=== PATIENT | female | born 1965 | race Caucasian/White ===

== ENCOUNTER 2020-06-11 09:16 | Outpatient (REF) | payer OTHER, SELFPAY ==
--- NOTE | 2020-06-11 09:27 | XR_ITS ---
EXAMINATION: XR SHOULDER, LEFT CLINICAL INFORMATION: Pain left shoulder. COMPARISON: None TECHNIQUE: AP external rotation, Grashey, scapular Y, and axillary views of the left shoulder. FINDINGS: The bones and soft tissues are normal. No fracture. Glenohumeral and acromioclavicular alignment is anatomic with normal joint space. No abnormal soft tissue calcifications. XR/XR shoulder LT min 2V IMPRESSION: Unremarkable left shoulder.
[2020-06-11 11:41] LABS: Alanine Aminotransferase 14 U/L (0-31); Alkaline Phosphatase 72 U/L (39-117); Anion Gap 13 (12-20); Aspartate Amino Transferase 16 U/L (5-31); Bilirubin Total 0.3 mg/dL (0.0-1.0); Blood Urea Nitrogen 19 mg/dL (9-16); Carbon Dioxide 28 mmol/L (22-29); Chloride 104 mmol/L (96-108); Cholesterol 245 mg/dL; Estimated Glomerular Filt Rate > 60; Glucose Fasting 109 mg/dL (60-99); HDL Cholesterol 73 mg/dL; LDL Cholesterol Calculated 156 mg/dl; Potassium 4.7 mmol/l (3.3-5.1); Sodium 140 mmol/L (135-145); Total Protein 7.7 g/dL (6.5-8.0); Triglycerides 81 mg/dL
[2020-06-11 12:04] LABS: TSH reflex Free T4 11.43 mIU/mL (0.32-4.0)
[2020-06-11 12:38] LABS: Free T4 (Free Thyroxine) 0.84 ng/dL (0.71-1.85)
== END 2020-06-11 09:17 | disposition home or self-care (01) ==
LOC: HO.HMGCX 09:16
PROVIDERS: PCP Nurse Practitioner Family; Visit Provider Nurse Practitioner Family
DX: M25.512 Pain in left shoulder (principal)
CPT/HCPCS: 73030; 80053; 80061; 84439; 84443

== ENCOUNTER 2020-06-18 16:25 | Outpatient (REF) | payer OTHER, SELFPAY ==
--- NOTE | 2020-06-18 16:28 | MM_ITS ---
EXAMINATION: MM SCREENING DIGITAL BREAST TOMOSYNTHESIS, BILATERAL CLINICAL INFORMATION: Screening. Asymptomatic. Family history breast cancer aunt, grandmother. The lifetime risk of breast cancer based on the Tyrer-Cuzick Model is 17%. COMPARISON: Mammography: 08/25/2018 ([facility]). TECHNIQUE: Digital breast tomosynthesis is performed in both the craniocaudal and mediolateral oblique views along with computer-aided detection (CAD). Synthesized 2D images are generated from the tomosynthesis. Additional bilateral MLO views are provided. FINDINGS: The breasts are almost entirely fatty (ACR BI-RADS breast composition Category a). There are no significant masses, abnormal calcifications, or other abnormalities. The axilla and skin contours are unremarkable. No significant changes from prior outside exam. MM/MM tomosynthesis screening BI IMPRESSION: No mammographic evidence of malignancy. ASSESSMENT: BI-RADS 1: Negative RECOMMENDATION: Routine annual mammography screening. This patient's information was entered into a reminder system with a target due date for their next mammogram.
== END 2020-06-18 16:26 | disposition home or self-care (01) ==
LOC: HO.MAMMO 16:25
PROVIDERS: PCP Nurse Practitioner Family; Visit Provider Nurse Practitioner Family
DX: Z12.31 Encounter for screening mammogram for malignant neoplasm of breast (principal)
CPT/HCPCS: 77063; 77067

== ENCOUNTER 2020-06-26 15:32 | Outpatient (REF) | payer OTHER, SELFPAY ==
--- NOTE | 2020-06-26 15:34 | US_ITS ---
EXAMINATION: US THYROID CLINICAL INFORMATION: Enlarged thyroid. COMPARISON: None. TECHNIQUE: Linear transducer malik-scale and color Doppler examination with attention to the region of the thyroid. FINDINGS: SIZE: Measurements of the thyroid lobes and nodules are given in sagittal, anteroposterior and transverse dimensions respectively. Right Thyroid Lobe: 4.7 x 1.8 x 2.5 cm, volume 11.1 mL. Parenchyma: The gland echotexture is heterogeneous. Thyroid vascularity is normal. Left Thyroid Lobe: 5.0 x 2.0 x 2.0 cm, volume 10.4 mL. Parenchyma: The gland echotexture is heterogeneous. Thyroid vascularity is normal. Isthmus: 0.4 cm in maximum AP dimension. RIGHT THYROID LOBE: There is 1 nodule seen. 1. Location: Lower posterior. Size: 0.7 x 0.5 x 0.5 cm. Nodule characteristics: Hypoechoic, smoothly marginated with no intranodular flow, likely simple cysts. ISTHMUS: No nodules. LEFT THYROID LOBE: There is 1 nodule seen. 1. Location: Upper. Size: 1.4 x 0.8 x 1.2 cm. Nodule characteristics: Hypoechoic, macrocalcifications and no intranodular flow, complex cyst. NODES: No lymphadenopathy is seen in the tissue surrounding the thyroid gland. US/US thyroid IMPRESSION: Mild thyromegaly with complex cyst upper pole nodule left lobe, very low suspicion for malignancy. Recommend one-year follow-up
== END 2020-06-26 15:33 | disposition home or self-care (01) ==
LOC: HO.HMGCX 15:32
PROVIDERS: PCP Nurse Practitioner Family; Visit Provider Nurse Practitioner Family
DX: E04.1 Nontoxic single thyroid nodule (principal); E78.5 Hyperlipidemia, unspecified
CPT/HCPCS: 76536

== ENCOUNTER → 2020-06-27 14:50 | Outpatient (BNVA) | payer OTHER, SELFPAY | PROVIDERS: PCP Nurse Practitioner Family; Visit Provider Nurse Practitioner Family | DX: Z76.89 Persons encountering health services in other specified circumstances (principal) ==

== ENCOUNTER 2020-08-19 09:01 | Outpatient (REF) | payer OTHER, SELFPAY ==
[2020-08-22 11:42] LABS: HPV mRNA E6/E7 rflx Not Detected (Not Detected)
== END 2020-08-19 09:02 | disposition home or self-care (01) ==
LOC: HO.LAB 09:01
PROVIDERS: PCP Nurse Practitioner Family; Visit Provider Advanced Practice Midwife
DX: Z01.419 Encounter for gynecological examination (general) (routine) without abnormal findings (principal); E66.01 Morbid (severe) obesity due to excess calories; Z68.42 Body mass index [BMI] 45.0-49.9, adult; Z87.891 Personal history of nicotine dependence
CPT/HCPCS: 36415; 87624; 88141; 88142

== ENCOUNTER 2020-10-10 08:59 | Day surgery (SDC) | payer OTHER, SELFPAY ==
[2020-08-08 10:31] VITALS: BMI 48.6
[2020-10-10 09:13] VITALS: BP 144/59; PULSE 63; RESP 20; TEMP 36.3; O2SAT 99
--- NOTE | 2020-10-10 09:20 | HO.ANESPROP2 ---
[facility] Active Problems Active Problems: All Active Problems (Updated 08/08/20 @ 15:13 by Dom Pimentel, [facility]) Eczema (Acute) Screening for colon cancer (Acute) Screening for cervical cancer (Acute) Screening for breast cancer (Acute) Physical exam (Acute) Enlarged thyroid (Acute) Left shoulder pain (Acute) Dyslipidemia (Acute) Thyroid cyst (Acute) Dermatitis (Acute) Hypothyroid (Acute) Past Medical History Medical History COVID-19 vaccine administered Hypothyroid Family History Family History Father Lung cancer Diabetes CHF (congestive heart failure) Mother Lung cancer Hypertension Brother Hypertension Diabetes Paternal Grandmother Breast cancer Family/Other Breast cancer Family/Other Colon cancer Maternal Grandmother Colon cancer Surgical History Surgical History Hx of cholecystectomy Social History Social History Household Members: Spouse and Children Alcohol intake: current Alcohol intake frequency: holidays/special occasions only Smoking Status: Former smoker Use of substances other than those prescribed or required for medical reasons: No Advance Directives Information Provided: No 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 Allergy/AdvReac Type Severity Reaction Status Date / Time Penicillins Allergy Unknown HIVES Verified 07/16/20 08:23 sulfamethoxazole Allergy Unknown HIVES Verified 07/16/20 08:23 [From Bactrim] trimethoprim [From Bactrim] Allergy Unknown HIVES Verified 07/16/20 08:23 Active Medications: Current Medications Generic Name Dose Route Start Last Admin Trade Name Freq PRN Reason Stop Dose Admin Lactated Ringer's 1,000 mls @ 20 mls/hr 10/09/20 14:15 Lr IVCONT .Q24H SOURAV Home Medications Medication Instructions Recorded Confirmed Last Taken Type COVID-19 vacc,mRNA(Pfizer)(PF) 30 ml IM 07/16/20 07/16/20 Unknown History mcg/0.3 mL IM susp (EUA) hydroxyzine HCl 25 mg tablet [id number] mg PO 08/19/20 Unknown History triamcinolone acetonide 0.025 % appl TOPICAL 08/19/20 Unknown History topical cream Exam Exam Date and Time: October 10, 2020919 Height,Weight and Vital Signs: Height 5 ft 3 in Weight 124.7 kg Last Vital Signs Temp 97.3 F 10/10/20 09:13 Pulse 63 10/10/20 09:13 Resp 20 10/10/20 09:13 BP 144/59 H 10/10/20 09:13 Pulse Ox 99 10/10/20 09:13 Airway Mallampati Class: II TM Dist: >3cm Neck ROM: Full
[2020-10-10] MEDS: Lactated Ringers 1,000 ML 100 ML IVCONT (09:32)
--- NOTE | 2020-10-10 10:19 | P.HPSUR_ITS ---
Pre-Procedural Eval Section B Chief Complaint: screening Details of Present Illness: COLON CANCER SCREENING--+ HX POLYPS--BROTHER, AND COLON CANCER: MGM/MATERNAL AUNT Relevant Family History (Specify if Yes): Yes Relevant Social History: None Present Medications: see Short Stay Collaborative assessment Medical History: Significant History (Morbid obesity, Hypothyroid on replacement therapy) History of Previous Operations: Relevant previous surgery/procedure and date(s) (cholecystectomy 2 years ago.) Allergies: Allergies Allergy/AdvReac Type Severity Reaction Status Date / Time Penicillins Allergy Unknown HIVES Verified 07/16/20 08:23 sulfamethoxazole Allergy Unknown HIVES Verified 07/16/20 08:23 [From Bactrim] trimethoprim [From Bactrim] Allergy Unknown HIVES Verified 07/16/20 08:23 Review of Systems Sugical H&P ROS: Negative: Cardiovascular, Respiratory, Gastrointestinal and Musculoskeletal and Yes, Specify: Constitution (had lost 100 # but regained with Covid) and Endocrine (thyroid) Exam Surgical H&P Exam: Normal: HEENT, Normal: Heart, Normal: Lungs, Normal: Ex tremities and Normal: Skin and Significant Findings: Abdomen (central obesity) Plan Diagnosis/Plan: Unchanged I have reviewed the history and physical and performed a pertinent physical examination on my patient. No changes have occurred unless specified.yes
--- NOTE | 2020-10-10 10:50 | PM.OP ---
Brief Operative Note Date of Service: 10/10/20 Pre-op diagnosis: Colon cancer screening-+ Hx polyps in brother; hx colon cancer MGM,and M aunt. Post-op diagnosis: other (Negative exam) Procedure: COLONOSCOPY Implants: NONE Surgeon: Florinda Cyr MD Anesthesia: GLMA (AMISHA GALVAN CRNA) Estimated blood loss (mL): 0 Pathology: none sent Condition: stable Disposition: PACU
[2020-10-10 10:54] VITALS: BP 113/49; PULSE 54; RESP 16; TEMP 36.8; O2SAT 99
--- NOTE | 2020-10-10 11:05 | W.PM.OPN ---
Operative Note Operative Note Date of Service: 10/10/20 Narrative: Pre-op diagnosis: Colon cancer screening-+ Hx polyps in brother; hx colon cancer MGM,and M aunt. Post-op diagnosis: other (Negative exam) Procedure: COLONOSCOPY Implants: NONE Surgeon: Florinda Cyr MD Anesthesia: MAC: AMISHA GALVAN CRNA FINDINGS: JOSELIN-adequate sphincter tone. Adult slim colonoscope was introduced without difficulty advanced through sigmoid, descending, transverse colon, ascending colon into a deep cecal cap. Appendiceal orifice was wide open, ileacecal valve seen. PREP: Good to excellent. Slow withdrawal of scope, good rotational views no additional lesions were seen. ARV was clear. Estimated blood loss (mL): 0 Pathology: none sent Condition: stable Disposition: PACU PLAN: REPEAT SCREENING WITH HX POLYPS IN HER BROTHER IS 5 YEARS.
[2020-10-10 11:09] VITALS: BP 133/70; PULSE 50; RESP 16; O2SAT 99
[2020-10-10 11:26] VITALS: BP 135/52; PULSE 26; RESP 18; O2SAT 98
[2020-10-10] MEDS: ondansetron HCL 4 MG/2 ML VIAL IVPUSH (11:33)
[2020-10-10 11:41] VITALS: BP 127/49; PULSE 49; RESP 17; O2SAT 100
== END 2020-10-10 12:35 | disposition home or self-care (01) ==
PROVIDERS: PCP Nurse Practitioner Family; Visit Provider Internal Medicine Gastroenterology
PROC: 0DJD8ZZ Inspection of Lower Intestinal Tract, Via Natural or Artificial Opening Endoscopic (ICD-10-PCS; CPT 45378; principal; 2020-10-10 09:50)
DX: Z12.11 Encounter for screening for malignant neoplasm of colon (principal); Z83.71 Family history of colonic polyps; Z90.49 Acquired absence of other specified parts of digestive tract; Z88.0 Allergy status to penicillin; Z88.2 Allergy status to sulfonamides; Z87.891 Personal history of nicotine dependence
CPT/HCPCS: 45378; J2405

== ENCOUNTER 2021-02-11 09:11 | Outpatient (REF) | payer OTHER, SELFPAY ==
[2021-02-11 12:12] LABS: Cholesterol 211 mg/dL; HDL Cholesterol 58 mg/dL; LDL Cholesterol Calculated 136 mg/dl; Triglycerides 87 mg/dL
[2021-02-11 12:33] LABS: TSH reflex Free T4 9.82 uIU/mL (0.32-4.0)
== END 2021-02-11 09:12 | disposition home or self-care (01) ==
LOC: HO.HMGCLDS 09:11
PROVIDERS: PCP Nurse Practitioner Family; Visit Provider Nurse Practitioner Family
DX: E78.5 Hyperlipidemia, unspecified (principal); E03.9 Hypothyroidism, unspecified
CPT/HCPCS: 36415; 80061; 84439; 84443

== ENCOUNTER 2021-07-29 11:07 | Outpatient (REF) | payer OTHER, SELFPAY ==
--- NOTE | ~2021-07-29 | US_ITS ---
EXAMINATION: US THYROID CLINICAL INFORMATION: Nontoxic single thyroid nodule. COMPARISON: Thyroid ultrasound 06/26/2020. TECHNIQUE: Linear transducer grayscale and color Doppler examination with attention to the region of the thyroid. FINDINGS: SIZE: Measurements of the thyroid lobes and nodules are given in sagittal, anteroposterior and transverse dimensions respectively. Right Thyroid Lobe: 5.0 x 2.2 x 2.3 cm, volume 13.2 mL. Previously 4.7 x 1.8 x 2.5 cm, volume 11.1 mL. Parenchyma: The gland echotexture is heterogeneous. Thyroid vascularity is increased. Left Thyroid Lobe: 5.4 x 2.1 x 1.9 cm, volume 11.3 mL. Previously 5.0 x 2.0 x 2.0 cm, volume 10.4 mL. Parenchyma: The gland echotexture is heterogeneous. Thyroid vascularity is increased. Isthmus: 0.3 cm in maximum AP dimension. Previously 0.4 cm. Estimated total number of nodules greater than or equal to 1 cm: 1. 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 Location: Left mid/medial. Size: 1.4 x 0.7 x 1.1 cm, volume 0.56 mL. Previously: 1.4 x 0.8 x 1.2 cm, volume 0.70 mL. Nodule characteristics: Composition: Mixed cystic and solid (1). Echogenicity: Anechoic (0). Shape: Not taller than wide (0). Margins: Irregular (2). Echogenic Foci: None (0). ACR TI-RADS total points: 3 ACR TI-RADS category: 3 Significant change in size (>/= 20% in 2 dimensions and minimal increase of 2 mm or 50% or greater increase in volume): Change in features: Change in ACR TI-RADS risk category: 2. Location: Right upper/mid pole. Size: 0.6 x 0.3 x 0.6 cm, volume 0.07 mL. Previously: Not documented, new. Nodule characteristics: Composition: Mixed cystic and solid (1). Echogenicity: Anechoic (0). Shape: Not taller than wide (0). Margins: Irregular (2). Echogenic Foci: None (0). ACR TI-RADS total points: 3 ACR TI-RADS category: 3 NODES: No lymphadenopathy is seen in the tissue surrounding the thyroid gland. US/US thyroid IMPRESSION: 2 complex thyroid cysts with TI-RADS category 3 with neither nodule being 1.5 cm or larger in size ACR TI-RADS RECOMMENDATION REFERENCE: Ultrasound-guided fine-needle aspiration, followup ultrasound, no further follow up. * TR1 (0 point) and TR 2 (2 points): No FNA or follow up * TR3 (3 points): FNA if more than or equal to 2.5 cm in maximum dimension, followup ultrasound in 1, 3 and 5 years if 1.5 to 2.4 cm in maximum dimension. * TR4 (4-6 points): FNA if more than or equal to 1.5 cm in maximum dimension, followup ultrasound in 1, 2, 3 and 5 years if 1 to 1.4 cm in maximum dimension. * TR5 (more than or equal to 7 points): FNA if more than or equal to 1 cm in maximum dimension, followup ultrasound every year for 5 years if 0.5 to 0.9 cm in maximum dimension. * TR3, TR4 or TR5 nodules that are below the size threshold for follow up receive no follow up.
== END 2021-07-29 11:08 | disposition home or self-care (01) ==
LOC: HO.HMGCX 11:07
PROVIDERS: PCP Nurse Practitioner Family; Visit Provider Nurse Practitioner Family
DX: E04.1 Nontoxic single thyroid nodule (principal)
CPT/HCPCS: 76536

== ENCOUNTER → 2021-08-27 15:53 | Outpatient (BNVA) | payer OTHER, SELFPAY | PROVIDERS: PCP Nurse Practitioner Family; Visit Provider Internal Medicine Endocrinology, Diabetes & Metabolism ==

== ENCOUNTER 2021-09-03 10:55 | Outpatient (REF) | payer OTHER, SELFPAY ==
--- NOTE | ~2021-09-03 | US_ITS ---
EXAMINATION: US THYROID NODULE PRIOR TO FINE-NEEDLE ASPIRATION BIOPSY CLINICAL INFORMATION: Left thyroid nodule for fine-needle aspiration biopsy. COMPARISON: 06/26/2020 and 07/29/2021. TECHNIQUE: Linear transducer grayscale and color Doppler examination of the left thyroid lobe. FINDINGS: Scanning of the left thyroid nodule which measures approximately 1.4 x 0.8 x 1.2 cm in size demonstrates what appears to be a smooth-margined minimally complex colloid cyst without internal vascularity and which is wider than it is tall. A few echogenic foci are present which are likely due to colloid. After discussion with the patient with possible options, the patient decided to hold off on the fine-needle aspiration biopsy in favor of follow-up. US/US thyroid IMPRESSION: Fine-needle aspiration biopsy of left thyroid colloid cyst canceled at this time for a TI-RADS Category 3 nodule being less than 1.5 cm in largest dimension. Continued follow-up is recommended in one year unless clinical concern changes. ACR TI-RADS RECOMMENDATION REFERENCE: * TR1 (0 point) and TR 2 (2 points): No FNA or follow up * TR3 (3 points): FNA if more than or equal to 2.5 cm in maximum dimension, followup ultrasound in 1, 3 and 5 years if 1.5 to 2.4 cm in maximum dimension. * TR4 (4-6 points): FNA if more than or equal to 1.5 cm in maximum dimension, followup ultrasound in 1, 2, 3 and 5 years if 1 to 1.4 cm in maximum dimension. * TR5 (more than or equal to 7 points): FNA if more than or equal to 1 cm in maximum dimension, followup ultrasound every year for 5 years if 0.5 to 0.9 cm in maximum dimension. * TR3, TR4 or TR5 nodules that are below the size threshold for follow up receive no follow up.
== END 2021-09-03 10:56 | disposition home or self-care (01) ==
LOC: HO.US 10:55
PROVIDERS: PCP Nurse Practitioner Family; Visit Provider Internal Medicine Endocrinology, Diabetes & Metabolism
DX: E03.9 Hypothyroidism, unspecified (principal)
CPT/HCPCS: 76536

== ENCOUNTER 2021-09-30 09:35 | Outpatient (REF) | payer OTHER, SELFPAY ==
[2021-10-01 03:12] LABS: CT PCR NOT DETECTED (Not Detect.); NG PCR NOT DETECTED (Not Detect.)
[2021-10-01 12:07] LABS: BV Int Neg Control Negative (Negative); BV Int Pos Control Positive (Positive)
[2021-10-03 10:57] LABS: HPV mRNA E6/E7 rflx Not Detected (Not Detected)
== END 2021-09-30 09:36 | disposition home or self-care (01) ==
LOC: HO.LAB 09:35
PROVIDERS: PCP Nurse Practitioner Family; Visit Provider Advanced Practice Midwife
DX: R10.2 Pelvic and perineal pain (principal); N92.0 Excessive and frequent menstruation with regular cycle; N93.9 Abnormal uterine and vaginal bleeding, unspecified; N84.1 Polyp of cervix uteri; Z11.51 Encounter for screening for human papillomavirus (HPV); Z11.3 Encounter for screening for infections with a predominantly sexual mode of transmission; Z11.8 Encounter for screening for other infectious and parasitic diseases; E03.9 Hypothyroidism, unspecified; Z87.891 Personal history of nicotine dependence; Z68.43 Body mass index [BMI] 50.0-59.9, adult; Z90.49 Acquired absence of other specified parts of digestive tract; Z88.3 Allergy status to other anti-infective agents; Z88.0 Allergy status to penicillin; Z88.2 Allergy status to sulfonamides
CPT/HCPCS: 81025; 87480; 87491; 87510; 87591; 87624; 87660; 88142

== ENCOUNTER 2021-10-13 08:59 | Outpatient (REF) | payer OTHER, SELFPAY ==
--- NOTE | ~2021-10-13 | US_ITS ---
EXAMINATION: US PELVIS CLINICAL INFORMATION: Pelvic and perineal pain COMPARISON: None TECHNIQUE: Ultrasound of the pelvis is performed using both transabdominal and transvaginal transducers along with Doppler. Transvaginal imaging is performed due to inadequate visualization transabdominally. FINDINGS: The uterus is anteverted and measures 9.6 x 6 x 6.5 cm in dimension. Uterine echotexture is heterogeneous. There are 2 small cysts in the body of the uterus posterior to the endometrium measuring 4 x 6 mm and 6 x 7 mm. No other focal uterine lesion is seen. Endometrial thickness is normal measuring 0.7 cm. Ovaries are normal. The right ovary measures 1.8 x 1.8 x 1.9 cm. The left ovary measures 2.7 x 1.6 x 1.6 cm. There is no fluid in the pelvis. US/US pelvic and transvaginal IMPRESSION: Normal thickness endometrium. Heterogeneous uterus with 2 small cysts in the body of the uterus posterior to the endometrium. This can be seen with adenomyosis.
[2021-10-13 12:07] LABS: Hematocrit 44.5 % (37.0-47.0); Hemoglobin 14.6 g/dl (12.0-16.0); Mean Corpuscular HGB Conc 32.8 g/dl (31.0-35.0); Mean Corpuscular Hemoglobin 29.6 pg (27.0-33.0); Mean Corpuscular Volume 90.3 fL (80.0-98.0); Mean Platelet Volume 12.8 fL (9.4-12.3); Platelet Count 201 X10*3/uL (160-400); Red Blood Count 4.93 X10*6/uL (4.20-5.50); Red Cell Distribution Width 13.7 % (11.0-16.0); White Blood Count 6.9 X10*3/uL (4.8-10.8)
[2021-10-13 12:28] LABS: Free T4 (Free Thyroxine) 1.23 ng/dL (0.71-1.85); Thyroid Stimulating Hormone 2.85 uIU/mL (0.32-4.0)
[2021-10-15 05:57] LABS: Thyroid Peroxidase Antibodies 174 IU/mL (<9)
[2021-10-15 12:07] LABS: Follicle Stimulating Hormone 48.5 mIU/mL
== END 2021-10-13 09:00 | disposition home or self-care (01) ==
LOC: HO.HMGCX 08:59
PROVIDERS: Absent Provider Internal Medicine Endocrinology, Diabetes & Metabolism; PCP Nurse Practitioner Family; Visit Provider Advanced Practice Midwife
DX: N92.0 Excessive and frequent menstruation with regular cycle (principal); N84.1 Polyp of cervix uteri; R10.2 Pelvic and perineal pain; E03.9 Hypothyroidism, unspecified
CPT/HCPCS: 36415; 76830; 76856; 83001; 84439; 84443; 85027; 86376

== ENCOUNTER 2021-10-24 10:38 | Outpatient (REF) | payer OTHER, SELFPAY ==
[2021-10-30 18:56] LABS: HPV mRNA E6/E7 rflx Not Detected (Not Detected)
== END 2021-10-24 10:39 | disposition home or self-care (01) ==
LOC: HO.LAB 10:38
PROVIDERS: PCP Nurse Practitioner Family; Visit Provider Obstetrics & Gynecology
DX: Z12.4 Encounter for screening for malignant neoplasm of cervix (principal); Z11.51 Encounter for screening for human papillomavirus (HPV); N95.0 Postmenopausal bleeding; N84.1 Polyp of cervix uteri; R87.615 Unsatisfactory cytologic smear of cervix
CPT/HCPCS: 58100; 87624; 88142; 88305

== ENCOUNTER → 2021-11-18 12:33 | Outpatient (BNVA) | payer OTHER, SELFPAY | PROVIDERS: PCP Nurse Practitioner Family; Visit Provider Obstetrics & Gynecology | DX: N95.0 Postmenopausal bleeding (principal) ==

== ENCOUNTER 2021-12-24 14:02 | Outpatient (REF) | payer OTHER, SELFPAY | END 2021-12-24 14:03 | disposition home or self-care (01) | LOC: HO.LAB 14:02 | PROVIDERS: PCP Nurse Practitioner Family; Visit Provider Obstetrics & Gynecology | DX: R87.610 Atypical squamous cells of undetermined significance on cytologic smear of cervix (ASC-US) (principal); N93.9 Abnormal uterine and vaginal bleeding, unspecified | CPT/HCPCS: 57454; 88305 ==

== ENCOUNTER 2022-01-15 18:02 | Outpatient (REF) | payer OTHER, SELFPAY | END 2022-01-15 18:03 | disposition home or self-care (01) | LOC: HO.LNP 18:02 | DX: R30.0 Dysuria (principal) | CPT/HCPCS: 87086; 87088; 87186 ==

== ENCOUNTER 2022-01-21 16:43 | Outpatient (REF) | payer OTHER, SELFPAY ==
[2022-01-21 18:03] LABS: Alanine Aminotransferase 33 U/L (0-31); Albumin Level 4.2 g/dL (3.5-5.0); Alkaline Phosphatase 69 U/L (39-117); Anion Gap 16 (12-20); Aspartate Amino Transferase 31 U/L (5-31); Bilirubin Total 0.5 mg/dL (0.0-1.0); Blood Urea Nitrogen 16 mg/dL (9-16); Calcium 9.5 mg/dL (8.4-10.2); Carbon Dioxide 25 mmol/L (22-29); Chloride 103 mmol/L (96-108); Estimated Glomerular Filt Rate 52; Glucose Random 119 mg/dL (60-115); Potassium 4.7 mmol/L (3.3-5.1); Sodium 139 mmol/L (135-145); Total Protein 7.6 g/dL (6.5-8.0)
== END 2022-01-21 16:44 | disposition home or self-care (01) ==
LOC: HO.LAB 16:43
PROVIDERS: PCP Nurse Practitioner Family; Visit Provider Nurse Practitioner Family
DX: E03.9 Hypothyroidism, unspecified (principal); R31.9 Hematuria, unspecified
CPT/HCPCS: 36415; 80053; 84443

== ENCOUNTER 2022-01-22 07:59 | Outpatient (REF) | payer OTHER, SELFPAY ==
--- NOTE | ~2022-01-22 | CT_ITS ---
EXAMINATION: CT ABDOMEN AND PELVIS WITHOUT AND WITH CONTRAST CLINICAL INFORMATION: Right lower quadrant pain. COMPARISON: Pelvic ultrasound from 10/13/2021. TECHNIQUE: Multidetector volumetric imaging was performed of the abdomen and pelvis before and after the IV administration of 85 mL of Omnipaque 350 intravenous contrast. Sagittal and coronal reformatted images were obtained on the technologist's workstation. This CT examination was performed using dose optimization techniques as appropriate, variously including the following: *Automated exposure control *Adjustment of mA and/or kV according to patient size (this includes techniques or standardized protocols for targeted exams where dose is matched to indication/reason for exam; i.e. extremities or head) *Use of iterative reconstruction technique DLP: 1538 mGy-cm FINDINGS: LUNG BASES: Normal. No pulmonary consolidation or pleural effusion at either lung base. LIVER: Diffuse hepatic steatosis. Otherwise, liver is unremarkable. GALLBLADDER AND BILIARY TREE: Gallbladder is surgically absent. No dilated bile ducts. PANCREAS: Normal. No edema, pancreatic ductal dilatation or mass. SPLEEN: Normal. ADRENAL GLANDS: Normal. KIDNEYS AND URETERS: Kidneys are normal in size. Small, 0.4 cm calyceal stone in the lower pole of the left kidney. Otherwise, kidneys are unremarkable. No hydroureteronephrosis. BLADDER: Normal. No calculi or wall thickening. BOWEL AND PERITONEUM: Stomach is unremarkable. No dilated loops of bowel. The retrocecal appendix is normal. No overt bowel wall thickening or mesenteric fat stranding. No ascites or pneumoperitoneum. ABDOMINAL WALL: Obese body habitus, and mild protrusion of fat into the umbilicus. No significant findings in the abdominal wall. No abdominal mass. VASCULATURE: Unremarkable. LYMPH NODES: No pathologic sized lymph nodes in the abdomen or pelvis. No inguinal lymphadenopathy. PELVIC VISCERA: The anteflexed, anteverted uterus has normal contour. No masses are seen. The adnexa are unremarkable. No pelvic free fluid. SKELETAL: The facet arthropathy is severe at L4-5 and moderate at L5-S1. Mild and moderate degenerative arthropathy of the visualized lower thoracic spine. No suspicious bone lesions. CT/CT abdomen pelvis wo/w IV con IMPRESSION: * No acute imaging abnormalities in the abdomen or pelvis. * Obesity and diffuse hepatic steatosis. * 0.4 cm stone of the lower pole of the left kidney. No hydronephrosis.
[2022-01-22] MEDS: iohexoL 350 MG/ML 100 ML INFUS..BTL IV (09:19)
== END 2022-01-22 08:00 | disposition home or self-care (01) ==
LOC: HO.CT 07:59
PROVIDERS: PCP Nurse Practitioner Family; Visit Provider Nurse Practitioner Family
DX: R10.2 Pelvic and perineal pain (principal); R10.31 Right lower quadrant pain; R31.9 Hematuria, unspecified
CPT/HCPCS: 74178; Q9967

== ENCOUNTER 2022-05-09 10:35 | Outpatient (REF) | payer OTHER, SELFPAY ==
--- NOTE | ~2022-05-09 | MM_ITS ---
EXAMINATION: MM SCREENING DIGITAL BREAST TOMOSYNTHESIS, BILATERAL CLINICAL INFORMATION: Screening. Asymptomatic. The lifetime risk of breast cancer based on the Tyrer-Cuzick Model is 17%. COMPARISON: Mammography: 06/18/2020; outside mammography 08/25/2018 TECHNIQUE: Digital breast tomosynthesis is performed in both the craniocaudal and mediolateral oblique views along with computer-aided detection (CAD). Synthesized 2D images are generated from the tomosynthesis. Additional bilateral CC views are provided. FINDINGS: The breasts are almost entirely fatty (ACR BI-RADS breast composition Category a). There are no significant masses, abnormal calcifications, or other abnormalities. Background stromal and fibroglandular densities are unremarkable. No architectural abnormality or developing density. No significant changes. MM/MM tomosynthesis screening BI IMPRESSION: No mammographic evidence of malignancy. ASSESSMENT: BI-RADS 1: Negative RECOMMENDATION: Routine annual mammography screening. This patient's information was entered into a reminder system with a target due date for their next mammogram.
== END 2022-05-09 10:36 | disposition home or self-care (01) ==
LOC: HO.MAMMO 10:35
PROVIDERS: Visit Provider Nurse Practitioner Family
DX: Z12.31 Encounter for screening mammogram for malignant neoplasm of breast (principal)
CPT/HCPCS: 77063; 77067

== ENCOUNTER 2022-07-14 12:09 | Outpatient (REF) | payer OTHER, SELFPAY ==
[2022-07-14 12:52] LABS: Influenza A PCR NEGATIVE (Negative); Influenza B PCR NEGATIVE (Negative); Resp Syncy Virus RNA Qual PCR NEGATIVE (Negative); SARS COV2 PCR INHOUSE NEGATIVE (Negative)
== END 2022-07-14 12:10 | disposition home or self-care (01) ==
LOC: HO.LNP 12:09
PROVIDERS: Visit Provider Internal Medicine
DX: Z20.822 Contact with and (suspected) exposure to COVID-19 (principal); R43.9 Unspecified disturbances of smell and taste
CPT/HCPCS: 0241U

== ENCOUNTER 2022-08-12 12:16 | Outpatient (REF) | payer OTHER, SELFPAY ==
[2022-08-12 14:25] LABS: Appearance Urine Clear; Color Urine Yellow; Glucose Urine UA Negative (Negative); Leukocyte Esterase Urine Moderate (2+) (Negative); Nitrite Urine Negative (Negative); Specific Gravity - Urine 1.025 (1.005-1.025); UMIC TRIGGER UACC YES; Urine Blood Moderate (2+) (Negative); Urine Ketones Negative (Negative); Urine Protein Negative (Neg-Trace)
[2022-08-12 14:35] LABS: Bacteria Urine None Seen (None Seen); Squamous Epithelial Cell Urine 0-2 /HPF (0-2); UACC Culture Trigger YES; WBC Urine >50 /HPF (0-5)
[2022-08-12 14:38] LABS: MANUAL DIFF FLAG NO
[2022-08-12 14:49] LABS: Basophils Percent Auto 0.4 % (0-2); Eosinophils Absolute Auto 0.4 X10*3/uL (0.0-0.4); Eosinophils Percent Auto 4.6 % (0-4); Hematocrit 44.7 % (37.0-47.0); Hemoglobin 14.6 g/dl (12.0-16.0); Imm Gran Abs Auto 0.01 X10*3/uL (0.00-0.03); Imm Gran Pct Auto 0.1 % (0.0-0.4); Lymphocytes Absolute Auto 2.8 X10*3/uL (1.2-4.9); Lymphocytes Percent Auto 37.1 % (20-40); Mean Corpuscular HGB Conc 32.7 g/dl (31.0-35.0); Mean Corpuscular Hemoglobin 29.3 pg (27.0-33.0); Mean Corpuscular Volume 89.8 fL (80.0-98.0); Mean Platelet Volume 11.4 fL (9.4-12.3); Monocytes Absolute Auto 0.5 X10*3/uL (0.1-1.2); Monocytes Percent Auto 6.1 % (2-11); Neutrophils Absolute Auto 3.9 x10*3/uL (2.0-8.3); Neutrophils Percent Auto 51.7 % (45-73); Platelet Count 262 X10*3/uL (160-400); Red Blood Count 4.98 X10*6/uL (4.20-5.50); Red Cell Distribution Width 13.5 % (11.0-16.0); White Blood Count 7.5 X10*3/uL (4.8-10.8)
[2022-08-12 15:10] LABS: Alanine Aminotransferase 19 U/L (0-31); Alkaline Phosphatase 83 U/L (39-117); Anion Gap 12 (12-20); Aspartate Amino Transferase 16 U/L (5-31); Bilirubin Total 0.6 mg/dL (0.0-1.0); Blood Urea Nitrogen 22 mg/dL (9-16); Calcium 9.2 mg/dL (8.4-10.2); Carbon Dioxide 29 mmol/L (22-29); Chloride 106 mmol/L (96-108); Cholesterol 232 mg/dL; Estimated Glomerular Filt Rate > 60; Glucose Fasting 106 mg/dL (60-99); HDL Cholesterol 55 mg/dL; LDL Cholesterol Calculated 161 mg/dl; Potassium 4.9 mmol/L (3.3-5.1); Sodium 142 mmol/L (135-145); Total Protein 7.5 g/dL (6.5-8.0); Triglycerides 82 mg/dL
[2022-08-12 15:24] LABS: TSH reflex Free T4 4.43 uIU/mL (0.32-4.0)
[2022-08-12 17:23] LABS: Free T4 (Free Thyroxine) 1.07 ng/dL (0.71-1.85)
== END 2022-08-12 12:17 | disposition home or self-care (01) ==
LOC: HO.HMGCLDS 12:16
PROVIDERS: PCP Nurse Practitioner Family; Visit Provider Nurse Practitioner Family
DX: Z00.00 Encounter for general adult medical examination without abnormal findings (principal); R82.90 Unspecified abnormal findings in urine
CPT/HCPCS: 36415; 80053; 80061; 81001; 84439; 84443; 85025; 87086; 87088; 87186

== ENCOUNTER 2023-04-13 16:31 | Outpatient (AMB) | payer OTHER, SELFPAY ==
--- NOTE | 2023-04-13 16:34 | MHC.PC.OV ---
Vital Signs 04/13/23 16:36 Height 5 ft 3 in Weight 305 lb BMI 54.0 BP 126/82 Blood Pressure Location Rt brachial Position Sitting Pulse 73 Pulse Source Pulse Oximeter Pulse Oximetry (%) 97 Oxygen Delivery Method Room Air Intake Visit Reasons: PE Allergies Penicillins Allergy (Unknown, Verified 04/13/23 16:36) HIVES sulfamethoxazole [From Bactrim] Allergy (Unknown, Verified 04/13/23 16:36) HIVES trimethoprim [From Bactrim] Allergy (Unknown, Verified 04/13/23 16:36) HIVES Medication List - Last Reconciled 04/13/23 by DELORES Burr albuterol sulfate 90 mcg/actuation (ProAir HFA) 2 puffs inhalation Q6H PRN 30 days levothyroxine 137 mcg PO DAILY 30 days Tobacco use date assessed: 10/06/22 Dental Screening Dental Screen Date: 04/13/23 Did you have a dental visit in the last 12 months?: Yes Did you have a dental problem in the last 6 months where you did not have access to dental care?: No Was dental information given to patient?: Patient has dentist HPI PE HPI Details Pt is here for a PE. Will order labs. Colon screen is up to date. 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 Mammo is due next month. Pt has been off of her thyroid medication for approximately 1 month because she ran out, will refill medication, encouraged to have labs drawn in 2 months min [facility] Medical History COVID-19 vaccine administered Hypothyroid Surgical History Hx of cholecystectomy Family History Father Lung cancer Diabetes CHF (congestive heart failure) Mother Lung cancer Hypertension Brother Hypertension Diabetes Paternal Grandmother Breast cancer Family/Other Breast cancer Family/Other Colon cancer Maternal Grandmother Colon cancer Social History Household Members: Spouse and Children Housing: House Alcohol intake: current Alcohol intake frequency: holidays/special occasions only Patient Tobacco Use Status: Former Tobacco user Quit Date: 2007 e-Cigarette/Vaping Use: Never Used 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 How often do you have a drink containing alcohol?: Never 3. How often do you have six or more drinks on one occasion?: Never Total Score: 0 Score Reviewed/Action Taken: No TOMMY-7 AMB Questionnaire TOMMY-7 Date TOMMY - 7 assessed: 10/06/22 Source: Developed by Drs. Balwinder Simeon, Taina Duarte, Rod Tucker and colleagues, with an educational clinton from [employer]. Review of Systems Const Denies chills and Denies fever(s) Eyes Denies blurry vision ENT Denies vertigo, Denies dizziness and Denies sore throat Card Denies chest pain at rest, Denies chest pain with activity, Denies diaphoresis, Denies dyspnea and Denies dyspnea on exertion Resp Denies cough, Denies dyspnea, Denies dyspnea on exertion and Denies wheezing GI Denies abdominal pain, Denies melena, Denies hematochezia, Denies constipation, Denies diarrhea and Denies loose stools Denies hematuria Musc Denies numbness and Denies tingling Skin/Breast Denies lesions Neuro Denies vertigo, Denies dizziness, Denies numbness and Denies tingling Psych Denies anxiety, Denies depression, Denies homicidal ideation, Denies suicidal ideation and Denies other (substance abuse) Aller/Immun Denies wheezing Physical exam (Primary Care) Vital Signs: Last Vital Signs Pulse 73 04/13/23 16:36 BP 126/82 04/13/23 16:36 Pulse Ox 97 04/13/23 16:36 Oxygen Delivery Method Room Air 04/13/23 16:36 BMI result Body Mass Index 54.0 Tobacco/Smoking Status: Tobacco use Status Tobacco use date assessed 10/06/22 04/13/23 16:39 Patient Tobacco Use Status Former Tobacco user 04/13/23 16:39 e-Cigarette/Vaping Use Never Used 04/13/23 16:39 Thrive Assessment: Date of Thrive Assessment Date Thrive assessed 10/06/22 04/13/23 16:39 Const General: cooperative Nutritional Appearance: obese morbidly obese Orientation/consciousness: patient oriented x3 HENMT Head: Yes normal to inspection, Yes normocephalic and Yes atraumatic Ears: TM's normal bilaterally Eyes General: appearance normal, both eyes and all related structures Alignment and Position: alignment normal and position normal Neck Neck: Yes normal visual inspection and Yes no lymphadenopathy Thyroid: Thyroid normal Resp Effort & Inspection: normal respiratory effort Auscultation: clear to auscultation bilaterally Cardio Rate: regular rate Rhythm: regular rhythm Heart sounds: S1 normal heart sound present, S2 normal heart sound present and no murmurs GI Palpation (GI): Soft to palpation and nontender Auscultation: normal bowel sounds Skin Rashes: no rashes Neuro General: patient oriented x3, moves all extremities, no focal motor deficits and deep tendon reflexes 2+ bilaterally Romberg Test: Negative Psych Appearance: grossly normal Mental Status: mental status grossly normal Speech and movement: Normal speech and movement present Affect: normal affect Attitude: cooperative Thought process: Normal thought process present Thought content: Normal thought content present Insight: Good insight present (Psych) Judgement: Good judgement present (Psych) Assessment and Plan Assessment & Plan (1) Physical exam: Code(s): Z.00 - Encounter for general adult medical examination without abnormal findings Plan: Labs ordered Plan The patient agreed to the use of a front office medical assistant for this encounter. Scribed for DELORES Gomes by Zofia Zhang front office medical assistant, on 04/13/2023 at 16:40 EST Orders: Orders Comprehensive [place]. Panel Fast Today Z00.00 - Encounter for general adult medical examination without abnormal findings UA CC w/rflx Micro + Cult Today Z00.00 - Encounter for general adult medical examination without abnormal findings Complete Blood Count Auto Diff Today Z00.00 - Encounter for general adult medical examination without abnormal findings TSH reflex Free T4 Today Z00.00 - Encounter for general adult medical examination without abnormal findings Lipid Panel Today Z00.00 - Encounter for general adult medical examination without abnormal findings Medications: Refilled levothyroxine 137 mcg PO DAILY 30 days 30 tabs 3RF Coding Level of Care Code Est Pt Prev Care 40-64y(84959) Diagnoses Physical exam Z00.00
[2023-04-13 16:36] VITALS: BP 126/82; PULSE 73; O2SAT 97; BMI 54.0
== END 2023-04-13 17:11 | disposition home or self-care (01) ==
PROVIDERS: Visit Provider Nurse Practitioner Family
DX: Z00.00 Encounter for general adult medical examination without abnormal findings (principal)
CPT/HCPCS: 99396

== ENCOUNTER 2023-05-10 13:07 | Outpatient (AMB) | payer OTHER, SELFPAY ==
--- NOTE | 2023-05-10 13:14 | MHC.OFFVIS ---
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 No complaints. Last Pap/HPV was in 11/09 ascus/HPV negative, colpo biopsy ECC and EMB negative Last Mammogram was BI-RADS 1 in 05/12 Last Colonoscopy was done in 10/09 was negative the recommendation was to repeat in 5 years [facility] Medical History ASCUS of cervix with negative high risk HPV COVID-19 vaccine administered Hypothyroid Surgical History Hx of cholecystectomy Family History Father Lung cancer Diabetes CHF (congestive heart failure) Mother Lung cancer Hypertension Brother Hypertension Diabetes Paternal Grandmother Breast cancer Family/Other Breast cancer Family/Other Colon cancer Maternal Grandmother Colon cancer Social History Household Members: Spouse and Children Housing: House Alcohol intake: current Alcohol intake frequency: holidays/special occasions only Patient Tobacco Use Status: Former Tobacco user Quit Date: 2007 e-Cigarette/Vaping Use: Never Used 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 needs: No Hearing needs: No Vision needs: Yes Female Reproductive History Menstrual Age of Menarche: 13 Total pregnancies: 2 Full term: 2 Number of Living Children: 2 Date of last pap smear: 10/24/21 ([place] 01/09 colpo) History of abnormal pap smear: Yes ( ascus) Date of Mammogram: 05/09/22 Review of Systems Const All systems reviewed & are unremarkable except as noted in HPI and below Card Reports as per HPI Resp Reports as per HPI GI Reports as per HPI and Reports no additional complaints Reports as per HPI Physical Exam Vital Signs: Last Vital Signs BP 112/80 05/10/23 13:21 BMI result Body Mass Index 54.2 Const General: cooperative, healthy appearing and comfortable Chest Chest palpation & inspection: normal inspection of the chest and normal palpation of entire chest wall Breast/axilla inspection: normal inspection of the breasts and normal inspection of the axillae Breast/axilla palpation: normal palpation of the breasts, normal palpation of the axillae and no axillary lymphadenopathy Resp Effort & Inspection: normal respiratory effort Auscultation: clear to auscultation bilaterally Percussion: percussion normal Cardio Palpation: normal PMI Rate: regular rate Rhythm: regular rhythm Heart sounds: no murmurs and no rubs Peripheral pulses: Peripheral pulses 2+ throughout GI Inspection: Yes normal to inspection Palpation (GI): Soft to palpation, nontender, no guarding, not rigid and No hepatosplenomegaly present Percussion: Yes normal to percussion Auscultation: normal bowel sounds Rectal Exam - Female: deferred General: Yes bladder normal to palpation External Female Exam: No lesion Speculum Exam - Vagina: normal appearance of the vagina, normal palpation, normal vaginal discharge and not erythematous Speculum Exam - Cervix: normal appearance of the cervix and normal palpation Bimanual exam- vagina & uterus: normal bimanual exam, normal palpation, uterine size normal, bladder normal to palpation, consistency normal and normal palpation Bimanual Exam- Adnexa, other: normal adnexae, no masses and no tenderness Assessment & Plan Assessment & Plan (1) Well woman exam: Code(s): Z01.419 - Encounter for gynecological examination (general) (routine) without abnormal findings Plan: Co testing done. Counseled the patient about the recommended dietary allowance of 1200 mg of Calcium & 600 IU of vitamin D. Mammogram ordered. The patient was instructed to perform monthly self-breast exams and schedule annual exam in a year. All questions answered and the patient verbalized understanding. Orders: Orders MM screening mammo BI Today Z12.31 - Encounter for screening mammogram for malignant neoplasm of breast Coding Level of Care Code Est Pt Prev Care 40-64y(64435) Diagnoses Well woman exam Z01.419
[2023-05-10 13:21] VITALS: BP 112/80; BMI 54.2
== END 2023-05-10 13:37 | disposition home or self-care (01) ==
PROVIDERS: PCP Nurse Practitioner Family; Visit Provider Obstetrics & Gynecology
DX: Z01.419 Encounter for gynecological examination (general) (routine) without abnormal findings (principal)
CPT/HCPCS: 99396

== ENCOUNTER 2023-05-10 13:07 | Outpatient (REF) | payer OTHER, SELFPAY ==
[2023-05-14 08:53] LABS: HPV mRNA E6/E7 rflx Not Detected (Not Detected)
== END 2023-05-10 13:08 | disposition home or self-care (01) ==
LOC: HO.LNP 13:07
PROVIDERS: PCP Nurse Practitioner Family; Visit Provider Obstetrics & Gynecology
DX: Z01.419 Encounter for gynecological examination (general) (routine) without abnormal findings (principal); Z11.51 Encounter for screening for human papillomavirus (HPV)
CPT/HCPCS: 87624; 88142

== ENCOUNTER 2023-06-22 15:14 | Outpatient (REF) | payer OTHER, SELFPAY | END 2023-06-22 15:15 | disposition home or self-care (01) | LOC: HO.LNP 15:14 | PROVIDERS: PCP Nurse Practitioner Family; Visit Provider Obstetrics & Gynecology | DX: R87.610 Atypical squamous cells of undetermined significance on cytologic smear of cervix (ASC-US) (principal) | CPT/HCPCS: 57454; 88305 ==

== ENCOUNTER 2023-06-22 15:14 | Outpatient (AMB) | payer OTHER, SELFPAY ==
--- NOTE | 2023-06-22 15:18 | A.OFFVIS_ITS ---
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 Pap ascus/HPV negative PFSH Medical History ASCUS of cervix with negative high risk HPV COVID-19 vaccine administered Hypothyroid Surgical History Hx of cholecystectomy Family History Father Lung cancer Diabetes CHF (congestive heart failure) Mother Lung cancer Hypertension Brother Hypertension Diabetes Paternal Grandmother Breast cancer Family/Other Breast cancer Family/Other Colon cancer Maternal Grandmother Colon cancer Social History Household Members: Spouse and Children Housing: House Alcohol intake: current Alcohol intake frequency: holidays/special occasions only Patient Tobacco Use Status: Former Tobacco user Quit Date: 2007 e-Cigarette/Vaping Use: Never Used Patient : No 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 needs: No Hearing needs: No Vision needs: Yes Female Reproductive History Menstrual Age of Menarche: 13 control method: none Date of last pap smear: 05/11/23 (ASCUS) Physical Exam Vital Signs: Last Vital Signs BP 132/80 06/22/23 15:25 BMI result Body Mass Index 54.2 Office Procedures Colposcopy Before the procedure was started discussed with the patient the procedure, alternatives & all the risks associated with the procedure (bleeding, infection, injury to vagina, bladder, vessels, possible need for transfusion with all its risks) then patient signed the consent Pap smear = ascus/HPV negative Speculum inserted, acetic acid used Colposcopy done Transformation zone seen, acetowhite lesions identified at 4+6+7+9+12+1 o?clock, cervical biopsies taken from 4+6+7+9+12 o?clock, ECC done afterwards. Vaginoscopy of the upper vagina showed no evidence of any aceto-white lesions Monsel solution used for hemostasis. The patient tolerated well . At the end the patient was instructed to call if temp>100.4, abdominal pain, n/v, bleeding; The patient was given the following instructions: nothing per vagina, no intercourse or bath tub use. All questions answered the patient verbalized understanding. Instructed the patient to make an appointment in 2 weeks for follow-up This note was generated with a voice recognition program. Some errors may have been overlooked during the review of this note. Sometimes these errors may affect the content or meaning of a given sentence. [id number] of cervix including upper vagina with biopsy and ECC Procedure code (CPT) selection complete Assessment & Plan Assessment & Plan (1) ASCUS of cervix with negative high risk HPV: Code(s): R87.610 - Atypical squamous cells of undetermined significance on cytologic smear of cervix (ASC-US) Plan: Colposcopy done, see procedure note Orders: Orders AMB Colposcopy Today R87.610 - Atypical squamous cells of undetermined significance on cytologic smear of cervix (ASC-US) Coding Level of Care Code Procedure Only Diagnoses ASCUS of cervix with negative high risk HPV R87.610 CPT Codes Colposcopy - CPT: 51054-Dfsjpeoxr of cervix including upper vagina with biopsy and ECC ([id number])
[2023-06-22 15:25] VITALS: BP 132/80; BMI 54.2
== END 2023-06-22 15:47 | disposition home or self-care (01) ==
LOC: HO.HWS 15:14
PROVIDERS: PCP Nurse Practitioner Family; Visit Provider Obstetrics & Gynecology
DX: R87.610 Atypical squamous cells of undetermined significance on cytologic smear of cervix (ASC-US) (principal)
CPT/HCPCS: 57454

== ENCOUNTER 2023-07-12 15:13 | Outpatient (AMB) | payer OTHER, SELFPAY ==
[2023-07-12 15:32] VITALS: BP 124/80
--- NOTE | 2023-07-12 15:32 | MHC.OFFVIS ---
Intake Vital Signs 07/12/23 15:32 Height 5 ft 3 in BP 124/80 Intake Visit Reasons: COLPO follow up Allergies Penicillins Allergy (Unknown, Verified 07/12/23 15:32) HIVES sulfamethoxazole [From Bactrim] Allergy (Unknown, Verified 07/12/23 15:32) HIVES trimethoprim [From Bactrim] Allergy (Unknown, Verified 07/12/23 15:32) HIVES HPI HPI Comments History of Present Illness Details Presenting post colpo for follow-up. The patient is doing well with no complaints. The pathology showed the following: A. Cervix, 1:00, biopsy: Endocervical glandular mucosa; negative for dysplasia; no squamous component present. B. Cervix, 4:00, biopsy: Squamous mucosa; negative for dysplasia; no endocervical glandular component present. C. Cervix, 6:00, biopsy: Squamous mucosa; negative for dysplasia; no endocervical glandular component present. D. Cervix, 7:00, biopsy: Squamous mucosa; negative for dysplasia; no endocervical glandular component present. E. Cervix, 9:00, biopsy: Squamous and endocervical glandular mucosa; negative for dysplasia. F. Cervix, 12:00, biopsy: Low-grade squamous intraepithelial lesion (mild dysplasia, ORIN 1); detached endocervical glandular epithelium present. G. Endocervix, curettage: Low-grade squamous intraepithelial lesion (mild dysplasia, ORIN 1); endocervical glandular epithelium present. Comment: The atypical cells in the previous Pap test ([id number]) are similar to the dysplastic cells in the current biopsy [facility] Medical History (Updated 07/12/23 @ 15:36 by Jeff Mcnair MD) ASCUS of cervix with negative high risk HPV COVID-19 vaccine administered Hypothyroid Surgical History Hx of cholecystectomy Family History Father Lung cancer Diabetes CHF (congestive heart failure) Mother Lung cancer Hypertension Brother Hypertension Diabetes Paternal Grandmother Breast cancer Family/Other Breast cancer Family/Other Colon cancer Maternal Grandmother Colon cancer Social History Household Members: Spouse and Children Housing: House Alcohol intake: current Alcohol intake frequency: holidays/special occasions only Patient Tobacco Use Status: Former Tobacco user Quit Date: 2007 e-Cigarette/Vaping Use: Never Used 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 Discussed with the patient the sensitivity specificity, positive and negative predictive value in detecting cervical cancer in addition discussed the regression, persistence and progression rates. Recommended co-testing in 12 months, if cytology and or HPV are abnormal will proceed was colposcopy biopsy and endocervical curettage. Instructions given to the patient to schedule a co test appointment in 1 year. All questions answered the patient verbalized understanding. Coding Level of Care Code Tele Est Pt Level 3 (60306) Diagnoses Dysplasia of cervix, low grade (ORIN 1) N87.0
== END 2023-07-12 15:41 | disposition home or self-care (01) ==
LOC: HO.HWS 15:13
PROVIDERS: PCP Nurse Practitioner Family; Visit Provider Obstetrics & Gynecology
DX: N87.0 Mild cervical dysplasia (principal)
CPT/HCPCS: 99213

== ENCOUNTER → 2023-07-12 15:13 | Outpatient (BNVA) | payer OTHER, SELFPAY | PROVIDERS: PCP Nurse Practitioner Family; Visit Provider Obstetrics & Gynecology ==

== ENCOUNTER 2023-07-19 14:01 | Outpatient (REF) | payer OTHER, SELFPAY | END 2023-07-19 14:02 | disposition home or self-care (01) | LOC: HO.MAMMO 14:01 | PROVIDERS: PCP Nurse Practitioner Family; Visit Provider Obstetrics & Gynecology | DX: Z12.31 Encounter for screening mammogram for malignant neoplasm of breast (principal) | CPT/HCPCS: 77063; 77067 ==

== ENCOUNTER → 2023-07-19 14:15 | Outpatient (BNV) | payer OTHER, SELFPAY | PROVIDERS: PCP Nurse Practitioner Family; Visit Provider Radiology Diagnostic Radiology | DX: Z12.31 Encounter for screening mammogram for malignant neoplasm of breast (principal) | CPT/HCPCS: 77063; 77067 ==

== ENCOUNTER 2023-10-12 13:57 | Outpatient (REF) | payer OTHER, SELFPAY ==
[2023-10-12 16:12] LABS: MANUAL DIFF FLAG NO
[2023-10-12 16:17] LABS: Appearance Urine Turbid; Color Urine Yellow; Glucose Urine UA Negative (Negative); Leukocyte Esterase Urine Negative (Negative); Nitrite Urine Negative (Negative); PH 5.5 (5.0-9.0); Specific Gravity - Urine >= 1.030 (1.005-1.025); UMIC TRIGGER UACC YES; Urine Blood Small (1+) (Negative); Urine Ketones Negative (Negative); Urine Protein Negative (Neg-Trace)
[2023-10-12 16:26] LABS: Bacteria Urine 2+ (None Seen); Hyaline Casts Urine 0-2 /LPF (0-2); RBC Urine 0-2 /HPF (0-2); Squamous Epithelial Cell Urine 0-2 /HPF (0-2); WBC Urine 0-5 /HPF (0-5)
[2023-10-12 16:40] LABS: Basophils Absolute Auto 0.1 X10*3/uL (0.0-0.2); Basophils Percent Auto 0.6 % (0-2); Eosinophils Absolute Auto 0.4 X10*3/uL (0.0-0.4); Eosinophils Percent Auto 3.9 % (0-4); Hematocrit 46.1 % (37.0-47.0); Hemoglobin 15.3 g/dl (12.0-16.0); Imm Gran Abs Auto 0.02 X10*3/uL (0.00-0.03); Imm Gran Pct Auto 0.2 % (0.0-0.4); Lymphocytes Absolute Auto 2.4 X10*3/uL (1.2-4.9); Lymphocytes Percent Auto 26.8 % (20-40); Mean Corpuscular HGB Conc 33.2 g/dl (31.0-35.0); Mean Corpuscular Hemoglobin 29.3 pg (27.0-33.0); Mean Corpuscular Volume 88.1 fL (80.0-98.0); Mean Platelet Volume 12.6 fL (9.4-12.3); Monocytes Absolute Auto 0.5 X10*3/uL (0.1-1.2); Monocytes Percent Auto 5.9 % (2-11); Neutrophils Absolute Auto 5.6 x10*3/uL (2.0-8.3); Neutrophils Percent Auto 62.6 % (45-73); Platelet Count 200 X10*3/uL (160-400); Red Blood Count 5.23 X10*6/uL (4.20-5.50); Red Cell Distribution Width 13.7 % (11.0-16.0)
[2023-10-12 17:30] LABS: Alanine Aminotransferase 36 U/L (0-31); Albumin Level 3.9 g/dL (3.5-5.0); Alkaline Phosphatase 81 U/L (39-117); Anion Gap 13 (12-20); Aspartate Amino Transferase 24 U/L (5-31); Bilirubin Total 0.5 mg/dL (0.0-1.0); Blood Urea Nitrogen 18 mg/dL (9-16); Calcium 9.1 mg/dL (8.4-10.2); Carbon Dioxide 24 mmol/L (22-29); Chloride 108 mmol/L (96-108); Cholesterol 208 mg/dL (<200); Estimated Glomerular Filt Rate > 60; Glucose Fasting 128 mg/dL (60-99); HDL Cholesterol 55 mg/dL (>40); LDL Cholesterol Calculated 129 mg/dL (<100); Sodium 141 mmol/L (135-145); Total Protein 7.6 g/dL (6.5-8.0); Triglycerides 123 mg/dL (<150)
[2023-10-12 17:48] LABS: TSH reflex Free T4 3.36 uIU/mL (0.32-4.0)
== END 2023-10-12 13:58 | disposition home or self-care (01) ==
LOC: HO.HMGCLDS 13:57
PROVIDERS: PCP Nurse Practitioner Family; Visit Provider Nurse Practitioner Family
DX: Z00.00 Encounter for general adult medical examination without abnormal findings (principal); Z13.6 Encounter for screening for cardiovascular disorders
CPT/HCPCS: 36415; 80053; 80061; 81001; 84443; 85025

== ENCOUNTER 2023-10-13 10:01 | Outpatient (AMB) | payer OTHER, SELFPAY ==
--- NOTE | 2023-10-13 10:05 | A.OFFPC_ITS ---
Vital Signs 10/13/23 10:06 Weight 308 lb BP 126/80 Blood Pressure Location Lt brachial Position Sitting Pulse 77 Pulse Source Pulse Oximeter Pulse Oximetry (%) 98 Oxygen Delivery Method Room Air Intake Visit Reasons: 6 month follow up Intake Note: Patient here for lab f/u. Allergies Penicillins Allergy (Unknown, Verified 10/13/23 11:33) HIVES sulfamethoxazole [From Bactrim] Allergy (Unknown, Verified 10/13/23 11:33) HIVES trimethoprim [From Bactrim] Allergy (Unknown, Verified 10/13/23 11:33) HIVES Medication List - Last Reconciled 10/13/23 by MYKEL Burr-GREG albuterol sulfate 90 mcg/actuation (ProAir HFA) 2 puffs inhalation Q6H PRN 30 days atorvastatin 10 mg PO BEDTIME blood sugar diagnostic (FlockTAGTouch Verio test strips) Test blood sugar once a day lancets (FlockTAGTouch Delica Plus Lancet) Test blood sugar once a day levothyroxine 150 mcg PO DAILY 30 days lisinopril 2.5 mg PO DAILY metformin ER 500 mg PO DAILY OneTouch Verio Reflect Meter (blood-glucose meter) As directed to test blood sugar once a day NS Tobacco use date assessed: 10/06/22 Dental Screening Dental Screen Date: 04/13/23 HPI 6 month follow up HPI Details Pt's last fasting blood sugar was 128. Informed pt that she is now a diabetic. A1C in office today is 6.8. Will order microalbumin. Denies polyuria, polydipsia, and neuropathy. Pt denies any signs and symptoms of hypoglycemia and does know how to correct it. Will start metformin 500mg. Will also start low- dose AXEL and statin. 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 Micro hem noted. Pt has a hx of kidney stones. Will order urine culture, cytology, and CT urogram. Denies any flank pain. Pt's TSH was upper normal. Pt is reporting weight gain and fatigue. Will increase levothyroxine from 137mcg to 150mcg, will repeat TSH in 2 months [facility] Medical History (Updated 10/13/23 @ 10:24 by MYKEL Burr-GREG) ASCUS of cervix with negative high risk HPV COVID-19 vaccine administered Hypothyroid Surgical History Hx of cholecystectomy Family History Father Lung cancer Diabetes CHF (congestive heart failure) Mother Lung cancer Hypertension Brother Hypertension Diabetes Paternal Grandmother Breast cancer Family/Other Breast cancer Family/Other Colon cancer Maternal Grandmother Colon cancer Social History Household Members: Spouse and Children Housing: House Alcohol intake: current Alcohol intake frequency: holidays/special occasions only Patient Tobacco Use Status: Former Tobacco user Quit Date: 2007 e-Cigarette/Vaping Use: Never Used 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 1. Little interest or pleasure in doing things: not at all 2. Feeling down, depressed, or hopeless: several days 3. Trouble falling or staying asleep, or sleeping too much: not at all 4. Feeling tired or having little energy: more than half the days 5. Poor appetite or overeating: several days 6. Feeling bad about yourself - or that you are a failure or have let yourself or your family down: not at all 7. Trouble concentrating on things, such as reading the newspaper or watching television: several days 8. Moving or speaking so slowly that other people could have noticed. Or the opposite - being so fidgety or restless that you have been moving around a lot more than usual: not at all 9. Thoughts that you would be better off or of hurting yourself in some way: not at all Total score: 5 Depression Screening Interpretation: Negative Depression Screening Done: Yes 95158 - PHQ-9 Billing: Yes Source: Developed by Drs. Balwinder Simeon, Taina Duarte, Rod Tucker and colleagues, with an educational clinton from [employer]. Thrive Questionnaire Date Thrive assessed: 10/06/22 AUDIT C Alcohol Use Questionnaire (AUDIT-C) 1. How often do you have a drink containing alcohol?: Monthly or less 2. How many drinks containing alcohol do you have on a typical day when you are drinking?: 1 or 2 3. How often do you have six or more drinks on one occasion?: Never Total Score: 1 Score Reviewed/Action Taken: No TOMMY-7 AMB Questionnaire TOMMY-7 Date TOMMY - 7 assessed: 10/13/23 Feeling nervous, anxious, or on edge: 1 = Several days Not being able to stop or control worryin = Several days Worrying too much about different things: 1 = Several days Trouble relaxin = Several days Being so restless that it is hard to sit still: 0 = Not at all Becoming easily annoyed or irritable: 0 = Not at all Feeling afraid as if something awful might happen: 1 = Several days Total TOMMY-7 score (0-4 normal; 5-9 mild; 10-14 moderate; 15-21 severe): 5 Source: Developed by Drs. Balwinder Simeon, Taina Duarte, Rod Tucker and colleagues, with an educational clinton from [employer]. TOMMY-7 Assessment Billing TOMMY-7 Assessment Tool: TOMMY-7 Assessment 52362 Review of Systems Const Reports as per HPI Physical exam (Primary Care) Vital Signs: Last Vital Signs Pulse 77 10/13/23 10:06 BP 126/80 10/13/23 10:06 Pulse Ox 98 10/13/23 10:06 Oxygen Delivery Method Room Air 10/13/23 10:06 Tobacco/Smoking Status: Tobacco use Status Tobacco use date assessed 10/06/22 10/13/23 10:06 Patient Tobacco Use Status Former Tobacco user 10/13/23 10:06 e-Cigarette/Vaping Use Never Used 10/13/23 10:06 PHQ-9: PHQ-9 Score PHQ-9: Total score 5 10/13/23 11:34 Depression Screening Interpretation: Negative Thrive Assessment: Date of Thrive Assessment Date Thrive assessed 10/06/22 10/13/23 10:06 Const General: cooperative Nutritional Appearance: obese morbidly obese Orientation/consciousness: patient oriented x3 Resp Effort & Inspection: normal respiratory effort Auscultation: clear to auscultation bilaterally Cardio Rate: regular rate Rhythm: regular rhythm Heart sounds: S1 normal heart sound present and S2 normal heart sound present General: Yes no CVA tenderness Back/Spine/Pelvis Back: no CVA tenderness Neuro General: patient oriented x3 Extrem Other: bilat feet: + sensation with use of monofilament, feet intact Psych Appearance: grossly normal Mental Status: mental status grossly normal Speech and movement: Normal speech and movement present Affect: normal affect Attitude: cooperative Thought process: Normal thought process present Thought content: Normal thought content present Insight: Good insight present (Psych) Judgement: Good judgement present (Psych) Results AMB Hemoglobin A1c AMB Hemoglobin A1c 6.8 % Last Edit by CRISTOBAL Cordero on 10/13/23 10 :42 Results Reviewed Results Reviewed: Laboratory Last Values Hgb A1c (Clinic) 6.8 % (4.0-6.0) H 10/13/23 10:41 Assessment and Plan Assessment & Plan (1) Diabetes: Code(s): E11.9 - Type 2 diabetes mellitus without complications Plan: A1C done in office, microalbumin ordered (2) Microhematuria: Code(s): R31.29 - Other microscopic hematuria Plan: Urine culture, cytology, and CT urogram ordered (3) Hypothyroid: Code(s): E03.9 - Hypothyroidism, unspecified Plan: Increasing levothyroxine from 137mcg to 150mcg Plan The patient agreed to the use of a medical research tech for this encounter. Scribed for DELORES Gomes by Zofia Zhang medical research tech, on 10/13/2023 at 10:20 EST. Orders: Orders Microalbumin, Random (w Creat) Today E11.9 - Type 2 diabetes mellitus without complications Urine Culture Today R31.29 - Other microscopic hematuria AMB Hemoglobin A1c Today E11.9 - Type 2 diabetes mellitus without complications TSH reflex Free T4 Today E03.9 - Hypothyroidism, unspecified, E11.9 - Type 2 diabetes mellitus without complications Comprehensive Met. Panel Today E03.9 - Hypothyroidism, unspecified, E11.9 - Type 2 diabetes mellitus without complications Lipid Panel Today E03.9 - Hypothyroidism, unspecified, E11.9 - Type 2 diabetes mellitus without complications UA CC w/rflx Micro + Cult Today E03.9 - Hypothyroidism, unspecified, E11.9 - Type 2 [address] without complications [address] urogram Today R31.29 - Other microscopic hematuria Urine Cytology Today R31.29 - Other microscopic hematuria Complete Blood Count Auto Diff Today E03.9 - Hypothyroidism, unspecified, E11.9 - Type 2 diabetes mellitus without complications Comprehensive [place]. Panel Fast Today E03.9 - Hypothyroidism, unspecified, E11.9 - Type 2 diabetes mellitus without complications Medications: New atorvastatin 10 mg PO BEDTIME 90 tabs 0RF lisinopril 2.5 mg PO DAILY 90 tabs 0RF metformin ER 500 mg PO DAILY 90 tabs 0RF Changed From levothyroxine 137 mcg PO DAILY 30 days 30 tabs 3RF To levothyroxine 150 mcg PO DAILY 30 days 30 tabs 3RF Coding Level of Care Code Est Pt Level 3 (88493) Diagnoses Diabetes E11.9 Microhematuria R31.29 Hypothyroid E03.9 Additional Codes TOMMY-7 Assessment Billing - TOMMY-7 Assessment Tool: TOMMY-7 Assessment 38748 ([id number])
[2023-10-13 10:06] VITALS: BP 126/80; PULSE 77; O2SAT 98
== END 2023-10-13 13:29 | disposition home or self-care (01) ==
PROVIDERS: PCP Nurse Practitioner Family; Visit Provider Nurse Practitioner Family
DX: E11.9 Type 2 diabetes mellitus without complications (principal); R31.29 Other microscopic hematuria; E03.9 Hypothyroidism, unspecified
CPT/HCPCS: 83036; 99213

== ENCOUNTER 2023-11-16 10:36 | Outpatient (REF) | payer OTHER, SELFPAY ==
[2023-11-16 13:22] LABS: Urine Cytology See Pathology rpt
[2023-11-16 13:24] LABS: MANUAL DIFF FLAG NO
[2023-11-16 13:40] LABS: Appearance Urine Clear; Color Urine Yellow; Glucose Urine UA Negative (Negative); Leukocyte Esterase Urine Negative (Negative); Nitrite Urine Negative (Negative); PH 5.5 (5.0-9.0); Specific Gravity - Urine >= 1.030 (1.005-1.025); UMIC TRIGGER UACC YES; Urine Blood Trace (Negative); Urine Ketones Trace mg/dL (Negative); Urine Protein Negative (Neg-Trace)
[2023-11-16 13:43] LABS: Basophils Percent Auto 0.4 % (0-2); Eosinophils Absolute Auto 0.3 X10*3/uL (0.0-0.4); Hematocrit 45.7 % (37.0-47.0); Hemoglobin 15.2 g/dl (12.0-16.0); Imm Gran Abs Auto 0.02 X10*3/uL (0.00-0.03); Imm Gran Pct Auto 0.3 % (0.0-0.4); Lymphocytes Absolute Auto 2.2 X10*3/uL (1.2-4.9); Lymphocytes Percent Auto 31.4 % (20-40); Mean Corpuscular HGB Conc 33.3 g/dl (31.0-35.0); Mean Corpuscular Hemoglobin 29.6 pg (27.0-33.0); Mean Corpuscular Volume 89.1 fL (80.0-98.0); Mean Platelet Volume 12.3 fL (9.4-12.3); Monocytes Absolute Auto 0.5 X10*3/uL (0.1-1.2); Monocytes Percent Auto 6.7 % (2-11); Neutrophils Percent Auto 57.2 % (45-73); Platelet Count 260 X10*3/uL (160-400); Red Blood Count 5.13 X10*6/uL (4.20-5.50); Red Cell Distribution Width 13.8 % (11.0-16.0)
[2023-11-16 13:51] LABS: Monotest Negative (Negative)
[2023-11-16 14:04] LABS: Alanine Aminotransferase 26 U/L (0-31); Albumin Level 4.1 g/dL (3.5-5.0); Alkaline Phosphatase 72 U/L (39-117); Anion Gap 12 (12-20); Aspartate Amino Transferase 25 U/L (5-31); Bilirubin Total 0.3 mg/dL (0.0-1.0); Blood Urea Nitrogen 18 mg/dL (9-16); Calcium 9.6 mg/dL (8.4-10.2); Carbon Dioxide 25 mmol/L (22-29); Chloride 107 mmol/L (96-108); Cholesterol 124 mg/dL (<200); Estimated Glomerular Filt Rate > 60; Glucose Fasting 120 mg/dL (60-99); Glucose Random 119 mg/dL (60-115); HDL Cholesterol 42 mg/dL (>40); LDL Cholesterol Calculated 68 mg/dL (<100); Potassium 4.1 mmol/L (3.3-5.1); Sodium 140 mmol/L (135-145); Total Protein 7.8 g/dL (6.5-8.0); Triglycerides 74 mg/dL (<150)
[2023-11-16 14:16] LABS: Bacteria Urine None Seen (None Seen); Hyaline Casts Urine 0-2 /LPF (0-2); RBC Urine 0-2 /HPF (0-2); Squamous Epithelial Cell Urine 0-2 /HPF (0-2); WBC Urine 0-5 /HPF (0-5)
[2023-11-16 14:21] LABS: Creatinine Urine 291.62 mg/dL; Microalbum/Creatinine Ratio Ur 6.1 ug/mg cr (<30); TSH reflex Free T4 0.94 uIU/mL (0.32-4.0); Vitamin D 25-OH Total 13.2 ng/mL (>30)
[2023-11-16 14:29] LABS: Folate 6.4 ng/mL (> or = 4.0); Vitamin B12 500 pg/mL (200-900)
[2023-11-17 16:04] LABS: A. Phagocytphilium DNA,RT-PCR NOT DETECTED (NOT DETECTED); Babesia Microti DNA, RT-PCR NOT DETECTED (NOT DETECTED); Borrelia Miyamotoi,DNA RT-PCR NOT DETECTED (NOT DETECTED); E.Chaffeensis DNA RT-PCR NOT DETECTED (NOT DETECTED); Lyme(Borrelia ssp)DNA RT-PCR NOT DETECTED (NOT DETECTED)
[2023-11-18 21:23] LABS: Anti Nuclear Antibody Screen NEGATIVE (NEGATIVE)
== END 2023-11-16 10:37 | disposition home or self-care (01) ==
LOC: HO.HMGCLDS 10:36
PROVIDERS: PCP Nurse Practitioner Family; Visit Provider Nurse Practitioner Family
DX: Z00.00 Encounter for general adult medical examination without abnormal findings (principal); E11.9 Type 2 diabetes mellitus without complications; E03.9 Hypothyroidism, unspecified; R31.29 Other microscopic hematuria; R53.83 Other fatigue
CPT/HCPCS: 36415; 80053; 80061; 81001; 82043; 82306; 82570; 82607; 82746; 84443; 85025; 86038; 86308; 87086; 87468; 87469; 87478; 87484; 87798; 88112

== ENCOUNTER 2023-12-02 16:47 | Outpatient (REF) | payer OTHER, SELFPAY ==
[2023-12-02 17:02] LABS: MANUAL DIFF FLAG NO
[2023-12-02 17:11] LABS: Basophils Percent Auto 0.4 % (0-2); Eosinophils Absolute Auto 0.2 X10*3/uL (0.0-0.4); Eosinophils Percent Auto 2.8 % (0-4); Hematocrit 42.9 % (37.0-47.0); Hemoglobin 14.5 g/dl (12.0-16.0); Imm Gran Abs Auto 0.01 X10*3/uL (0.00-0.03); Imm Gran Pct Auto 0.1 % (0.0-0.4); Lymphocytes Absolute Auto 2.5 X10*3/uL (1.2-4.9); Lymphocytes Percent Auto 29.8 % (20-40); Mean Corpuscular HGB Conc 33.8 g/dl (31.0-35.0); Mean Corpuscular Hemoglobin 29.7 pg (27.0-33.0); Mean Corpuscular Volume 87.7 fL (80.0-98.0); Mean Platelet Volume 12.8 fL (9.4-12.3); Monocytes Absolute Auto 0.5 X10*3/uL (0.1-1.2); Monocytes Percent Auto 6.5 % (2-11); Neutrophils Percent Auto 60.4 % (45-73); Platelet Count 162 X10*3/uL (160-400); Red Blood Count 4.89 X10*6/uL (4.20-5.50); Red Cell Distribution Width 14.1 % (11.0-16.0); White Blood Count 8.3 X10*3/uL (4.8-10.8)
[2023-12-02 17:20] LABS: Partial Thromboplastin Time 29.6 SEC (26.0-36.8)
[2023-12-02 17:39] LABS: Urine Cytology See Pathology rpt
[2023-12-02 17:47] LABS: Appearance Urine Clear; Color Urine Yellow; Glucose Urine UA Negative (Negative); Leukocyte Esterase Urine Negative (Negative); Nitrite Urine Negative (Negative); PH 5.5 (5.0-9.0); Specific Gravity - Urine >= 1.030 (1.005-1.025); Urine Blood Negative (Negative); Urine Ketones Trace mg/dL (Negative); Urine Protein Negative (Neg-Trace)
[2023-12-10 16:58] LABS: Factor VIII Activity Clotting 168 % normal (50-180); PTT, Activated 26 sec (23-32); Ristocetin Cofactor 184 % normal (42-200)
== END 2023-12-02 16:48 | disposition home or self-care (01) ==
LOC: HO.LAB 16:47
PROVIDERS: PCP Nurse Practitioner Family; Visit Provider Nurse Practitioner Family
DX: Z00.00 Encounter for general adult medical examination without abnormal findings (principal); R58 Hemorrhage, not elsewhere classified; R31.29 Other microscopic hematuria
CPT/HCPCS: 36415; 81003; 85025; 85240; 85245; 85246; 85247; 85610; 85730

== ENCOUNTER 2024-01-25 10:04 | Outpatient (AMB) | payer OTHER, SELFPAY ==
--- NOTE | 2024-01-25 10:05 | A.OFFVIS_ITS ---
Intake Visit Reasons: microscopic hematuria Intake Note: Patient is present for microscopic hematuria Urology Medication:none Antibiotic Allergy:penicillin,bactrim Blood Thinner:none Crinkling Machine Operator Required: No Allergies Penicillins Allergy (Unknown, Verified 01/25/24 10:06) HIVES sulfamethoxazole [From Bactrim] Allergy (Unknown, Verified 01/25/24 10:06) HIVES trimethoprim [From Bactrim] Allergy (Unknown, Verified 01/25/24 10:06) HIVES HPI Comments Details: Luann is a very pleasant 58-year-old female patient of Dr. Dee. She has a past medical history of ASCUS of cervix and follows up with Dr. Xu vicente here at [facility] as well as hypothyroidism. She presents to the office today as a new patient for microscopic hematuria. In discussion with the patient today she reports to be doing and feeling well. She reports having followed up with her PCP for her annual visit at which time microscopic hematuria was noted a CT urogram was ordered in recommendations were made for urology referral for further assessment evaluation. Patient reports having canceled her CT appointment as she was not feeling well and is rescheduled for March. She discusses being busy with her daughters upcoming wedding. She does report a previous history of smoking. She reports having quit in 2007. She endorses having a 15 year intermittent smoking history.. She otherwise denies any known workplace chemical exposure. 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 When asked she does report noting stress incontinence she otherwise denies urinary urgency, urinary frequency, nocturia, hematuria, dysuria, foul smelling urine, changes to urinary stream, flank pain, fever, and or chills. She is happy with her current voiding parameters. In office urinalysis results reviewed with the patient today. Discussed at length potential causes of microscopic hematuria. Discussed reasons for blood in the urine may include but are not limited to kidney stones, cancer in the urinary tract, kidney stone disease or inflammatory conditions of the urinary tract. I have discussed workup to include cystoscopy evaluation. In review of patient's chart it appears urine cytology 11/11 Negative for high-grade urothelial carcinoma. [facility] Medical History ASCUS of cervix with negative high risk HPV COVID-19 vaccine administered Hypothyroid Surgical History Hx of cholecystectomy Family History Father Lung cancer Diabetes CHF (congestive heart failure) Mother Lung cancer Hypertension Brother Hypertension Diabetes Paternal Grandmother Breast cancer Family/Other Breast cancer Family/Other Colon cancer Maternal Grandmother Colon cancer Social History Household Members: Spouse and Children Housing: House Alcohol intake: current Alcohol intake frequency: holidays/special occasions only Patient Tobacco Use Status: Former Tobacco user e-Cigarette/Vaping Use: Never Used 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 needs: No Hearing needs: No Vision needs: Yes Female Reproductive History Menstrual Age of Menarche: 13 Review of Systems Const All systems reviewed & are unremarkable except as noted in HPI and below Physical Exam Const General: cooperative, healthy appearing, comfortable, no acute distress, well developed, alert and awake Nutritional Appearance: overweight Orientation/consciousness: patient oriented x3 Limitations: no limitations HEENT Head: Yes normal to inspection, Yes normocephalic and Yes atraumatic Ears: hearing grossly normal bilaterally Eyes General: appearance normal, both eyes and all related structures Neck Neck: Yes normal visual inspection and Yes trachea midline Chest Chest palpation & inspection: normal inspection of the chest Resp Effort & Inspection: normal respiratory effort and able to speak in complete sentences Cardio Rate: regular rate GI Inspection: Yes normal to inspection General: Yes no CVA tenderness Back/Spine/Pelvis Back: no CVA tenderness Skin General skin exam: no rashes or lesions noted Neuro General: patient oriented x3 Extrem General: Yes normal to inspection Psych Appearance: grossly normal and well kempt Mental Status: mental status grossly normal Speech and movement: Normal speech and movement present and Clear speech present Affect: normal affect Attitude: cooperative Thought process: Normal thought process present Thought content: Normal thought content present Insight: Fair insight present (Psych) Judgement: Fair judgement present (Psych) Results AMB Urinalysis, Automated UA Leukoctes 0 Nancy/uL Last Edit by CRISTOBAL Vazquez on 01/25/24 10:17 UA Nitrite Negative Last Edit by CRISTOBAL Vazquez on 01/25/24 10:17 UA Urobilinogen 0.2 mg/dL Last Edit by Seb Toledo [facility] on 01/25/24 10:1 7 UA Protein 15 mg/dL Last Edit by Seb Toledo [facility] on 01/25/24 10:17 UA pH 5.0 Last Edit by Seb Toledo [facility] on 01/25/24 10:17 UA Blood 25 Bryant/uL Last Edit by Seb Toledo [facility] on 01/25/24 10:17 UA Specific [place] 1.020 Last Edit by Seb Toledo [facility] on 01/25/24 10: 17 UA Ketone Positive Last Edit by Seb Toledo [facility] on 01/25/24 10:17 UA Bilirubin 0 mg/dL Last Edit by Seb Toledo [facility] on 01/25/24 10:17 UA Glucose 0 mg/dL Last Edit by Seb Toledo [facility] on 01/25/24 10:17 Results Reviewed Results Reviewed: Laboratory Last Values Urine pH (Auto) 5.0 01/25/24 10:17 Specific [place] (Auto) 1.020 01/25/24 10:17 Urine Protein (Auto) 15 mg/dL 01/25/24 10:17 Glucose (UA)(Auto) 0 mg/dL 01/25/24 10:17 Urine Ketones (Auto) Positive 01/25/24 10:17 Urine Blood (Auto) 25 Bryant/uL 01/25/24 10:17 Urine Nitrite (Auto) Negative 01/25/24 10:17 Urine Bilirubin (Auto) 0 mg/dL 01/25/24 10:17 Urine Urobilinogen (Auto) 0.2 mg/dL 01/25/24 10:17 Leukocyte Esterase (Auto) 0 Nancy/uL 01/25/24 10:17 Assessment & Plan Assessment & Plan (1) Stress incontinence: Code(s): N39.3 - Stress incontinence (female) (male) Category: Medical (2) Microhematuria: Code(s): R31.29 - Other microscopic hematuria Category: Medical (3) History of nicotine dependence: Code(s): Z87.891 - Personal history of nicotine dependence Category: Medical Plan In office urinalysis results reviewed with the patient today; as noted above; will send for urine cytology. Patient with upcoming schedule appointment for CT in March Discussed at length potential causes of microscopic hematuria as well as further microscopic hematuria workup; risks and benefits of these interventions were discussed. BUN and creatinine ordered for imaging Discussed lifestyle modifications to assist with stress incontinence. Previous urine cytology results reviewed with the patient today. Patient would like to think about having an office cystoscopy performed; information provided Follow-up once imaging is completed; or sooner with any issues, concerns, and or questions Orders: Orders AMB Urinalysis Automated Today Z13.9 - Encounter for screening, unspecified Urine Cytology Today N39.0 - Urinary tract infection, site not specified Blood Urea Nitrogen Today R31.29 - Other microscopic hematuria, Z87.891 - Personal history of nicotine dependence Creatinine Today R31.29 - Other microscopic hematuria Patient Instructions: The patient had an opportunity to ask questions regarding the treatment plan. All questions were answered. Physical exam, labs, and imaging were discussed and reviewed in detail. As well as risks, benefits, and discussion of treatment choices. No major barriers to understanding were identified. The patient expressed understanding and agreement with the above treatment plan. The patient was made aware they should contact our office by phone for worsening of their current condition, the appearance of new symptoms, or with any questions or concerns. Compliance is encouraged with any medications and follow up testing that is ordered. It is a privilege to be allowed the opportunity to participate in? your urological care.? Again, if you have any questions or concerns If you have any questions or concerns please do not hesitate to contact me. The office is [phone]. This note is constructed using voice recognition software. While every effort has been made to ensure accuracy esters and emulsifiers supervisor errors may have been included. Yours sincerely, DELORES Sharif Coding Level of Care Code New Pt Level 3 (98897) Diagnoses Stress incontinence N39.3 Microhematuria R31.29 History of nicotine dependence Z87.891
== END 2024-01-25 10:40 | disposition home or self-care (01) ==
PROVIDERS: PCP Nurse Practitioner Family; Visit Provider Nurse Practitioner Family
DX: N39.3 Stress incontinence (female) (male) (principal); R31.29 Other microscopic hematuria; Z87.891 Personal history of nicotine dependence; Z13.9 Encounter for screening, unspecified
CPT/HCPCS: 99203

== ENCOUNTER → 2024-01-25 10:04 | Outpatient (BNVA) | payer OTHER, SELFPAY | PROVIDERS: PCP Nurse Practitioner Family; Visit Provider Nurse Practitioner Family | DX: R31.29 Other microscopic hematuria (principal); N39.3 Stress incontinence (female) (male); Z87.891 Personal history of nicotine dependence | CPT/HCPCS: 81003 ==

== ENCOUNTER 2024-01-25 16:45 | Outpatient (REF) | payer OTHER, SELFPAY ==
[2024-01-25 16:49] LABS: Urine Cytology See Pathology rpt
== END 2024-01-25 16:46 | disposition home or self-care (01) ==
LOC: HO.LNP 16:45
PROVIDERS: Visit Provider Nurse Practitioner Family
DX: N39.0 Urinary tract infection, site not specified (principal)
CPT/HCPCS: 88112

== ENCOUNTER → 2024-02-29 10:28 | Outpatient (BNV) | payer OTHER, SELFPAY | PROVIDERS: PCP Nurse Practitioner Family; Referring Provider Nurse Practitioner Family; Visit Provider Internal Medicine | DX: R23.3 Spontaneous ecchymoses (principal) | CPT/HCPCS: 99204 ==

== ENCOUNTER 2024-07-19 09:18 | Outpatient (AMB) | payer OTHER, SELFPAY ==
--- NOTE | 2024-07-19 09:21 | A.OFFPC_ITS ---
Vital Signs 07/19/24 09:22 Height 5 ft 3 in Weight 285 lb BMI 50.5 BP 130/74 Blood Pressure Location Lt brachial Position Sitting Pulse 76 Pulse Source Pulse Oximeter Pulse Oximetry (%) 94 Intake Visit Reasons: PE Allergies Penicillins Allergy (Unknown, Verified 07/19/24 09:25) HIVES sulfamethoxazole [From Bactrim] Allergy (Unknown, Verified 07/19/24 09:25) HIVES trimethoprim [From Bactrim] Allergy (Unknown, Verified 07/19/24 09:25) HIVES Medication List - Last Reconciled 07/19/24 by Dom Pimentel, TRAINING GENERALIST- albuterol sulfate 90 mcg/actuation 1 inh inhalation QID PRN NS atorvastatin 10 mg PO BEDTIME blood sugar diagnostic ([employer]uch Verio test strips) Test blood sugar once a day calcium phos,dibas-vitamin D3 77-400 mg-unit 2,000 tabs PO DAILY lancets ([employer]et[employer] Delica Plus Lancet) Test blood sugar once a day levothyroxine 150 mcg PO DAILY metformin ER 500 mg PO DAILY OneTouch Verio Reflect Meter (blood-glucose meter) As directed to test blood sugar once a day NS Tobacco use date assessed: 07/19/24 Dental Screening Dental Screen Date: 07/19/24 Did you have a dental visit in the last 12 months?: Yes Did you have a dental problem in the last 6 months where you did not have access to dental care?: No Was dental information given to patient?: Patient has dentist HPI PE HPI Details History of Present Illness The patient is a 58-year-old female presenting for a physical examination and management of her Type 2 Diabetes Mellitus. The patient was diagnosed with diabetes, and her hemoglobin A1c today is measured at 6.7%. She reports no recent episodes of fever, chills, blurred vision, numbness, tingling, abdominal pain, constipation, diarrhea, anxiety, depression, or urinary irregularities. The patient's diabetes management history appears stable with no acute complications or prior history of pancreatitis. Health Maintenance - Eye examination scheduled. - Mammogram and gynecological screening tests are updated. - Monitoring of blood glucose levels and routine HbA1c evaluation. -colon screen is up to date Social History Review of Systems - Constitutional: Denies fever or chills . - Neurological: Denies blurred vision, n umbness, or tingling. - Gastrointestinal: Denies abdominal marco a n, constipation, or diarrhea. - Genitourinary: Denies polyuria. - Psychological: Denies ongoing anxiety or depression. Physical Exam General: Cooperative, healthy appearing, comfortable, no acute distress and well developed, morbidly obese Orientation: Patient oriented x3 Limitations: No limitations Head: Normal to inspection Ears: Hearing grossly normal bilaterally Nose: Normal external nose present Face and sinus: Normal facial exam Eyes: Appearance normal, both eyes and all related structures Neck: Normal visual inspection and Yes full ROM Respiratory: Normal respiratory effort and able to speak in complete sentences. Clear to auscultation bilaterally Cardiovascular: Regular rate and rhythm. Normal S1 and S2 GI: Normal to inspection. Soft to palpation and nontender Skin: No rashes or lesions noted Neuro: Patient oriented x3 Extremities: Normal to inspection, feet intact bilat, + sensation with use of monofilament Results - Labs: Hemoglobin A1c at 6.7%. Plan - Initiate treatment with a GLP-1 agonis t, Mounjaro, for diabetes management. - The patient instructed to call with an y questions or concerns regarding the treatment. - Continue routine diabetes monitoring w ith regular follow-ups. Patient was informed and verbally consented to the use of an ambient scribe for clinic note documentation during this visit. Discussion Notes I discussed with the patient the management plan for Type 2 Diabetes Mellitus, highlighting the initiation of Mounjaro as a GLP-1 agonist. We talked about monitoring glucose levels and recognizing any potential side effects of the medication. I reassured her regarding the absence of a prior history of pancreatitis, which supports the safety of this treatment option. I ensured that she is aware of maintaining routine follow-ups and emphasized the importance of reaching out with any concerns or queries. Patient Instructions - Start the prescribed GLP-1 agonist, Mo unjaro. Labs ordered - Maintain regular glucose monitoring. - Call if you experience any side effect s or have questions about your treatment. - Keep scheduled follow-up appointments. [facility] Medical History ASCUS of cervix with negative high risk HPV COVID-19 vaccine administered Hypothyroid Surgical History Hx of cholecystectomy Family History Father Lung cancer Diabetes CHF (congestive heart failure) Mother Lung cancer Hypertension Brother Hypertension Diabetes Paternal Grandmother Breast cancer Family/Other Breast cancer Family/Other Colon cancer Maternal Grandmother Colon cancer Social History Household Members: Spouse and Children Housing: House Alcohol intake: current Alcohol intake frequency: holidays/special occasions only Patient Tobacco Use Status: Former Tobacco user Tobacco use type: Cigarette e-Cigarette/Vaping Use: Never Used service: No 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 1. Little interest or pleasure in doing things: several days 2. Feeling down, depressed, or hopeless: several days 3. Trouble falling or staying asleep, or sleeping too much: more than half the days 4. Feeling tired or having little energy: several days 5. Poor appetite or overeating: several days 6. Feeling bad about yourself - or that you are a failure or have let yourself or your family down: not at all 7. Trouble concentrating on things, such as reading the newspaper or watching television: not at all 8. Moving or speaking so slowly that other people could have noticed. Or the opposite - being so fidgety or restless that you have been moving around a lot more than usual: not at all 9. Thoughts that you would be better off or of hurting yourself in some way: not at all Total score: 6 Depression Screening Interpretation: Negative Depression Screening Done: Yes 67102 - PHQ-9 Billing: Yes Source: Developed by Drs. Balwinder Simeon, Taina Duarte, Rod Tucker and colleagues, with an educational clinton from [employer]. Thrive Questionnaire Date Thrive assessed: 07/19/24 I am a: Patient What is your living situation today?: I have a steady place to live Within the past 12 months, did the food you bought not last and you didn't have the money to get more?: Never true Within the past 12 months, did you worry whether your food would run out before you got money to buy more?: Never true Do you have trouble paying for medicines?: Yes Do you have trouble getting transportation to medical appointments?: No Do you have trouble paying your heating and electricity bill?: No Do you have trouble taking care of your child, family member or friend?: No Do you have trouble with day-to-day activities such as bathing, preparing meals, shopping, managing finances, etc.?: No Are you currently unemployed and looking for a job?: No Are you interested in more education?: No Please select the resources that you would like help with: None Currently or been in a relationship where the following occur: No concerns reported THRIVE Score: 0 AUDIT C Alcohol Use Questionnaire (AUDIT-C) 1. How often do you have a drink containing alcohol?: Monthly or less 2. How many drinks containing alcohol do you have on a typical day when you are drinking?: 1 or 2 3. How often do you have six or more drinks on one occasion?: Never Total Score: 1 Score Reviewed/Action Taken: Yes TOMMY-7 AMB Questionnaire TOMMY-7 Date TOMMY - 7 assessed: 07/19/24 Feeling nervous, anxious, or on edge: 0 = Not at all Not being able to stop or control worryin = Several days Worrying too much about different things: 1 = Several days Trouble relaxin = Several days Being so restless that it is hard to sit still: 0 = Not at all Becoming easily annoyed or irritable: 0 = Not at all Feeling afraid as if something awful might happen: 0 = Not at all Total TOMMY-7 score (0-4 normal; 5-9 mild; 10-14 moderate; 15-21 severe): 3 Source: Developed by Drs. Balwinder Simeon, Taina Duarte, Rod Tucker and colleagues, with an educational clinton from [employer]. TOMMY-7 Assessment Billing TOMMY-7 Assessment Tool: TOMMY-7 Assessment 06484 Physical exam (Primary Care) Vital Signs: Last Vital Signs Pulse 76 07/19/24 09:22 BP 130/74 07/19/24 09:22 Pulse Ox 94 07/19/24 09:22 BMI result Body Mass Index 50.5 Tobacco/Smoking Status: Tobacco use Status Tobacco use date assessed 07/19/24 07/19/24 09:25 Patient Tobacco Use Status Former Tobacco user 07/19/24 09:22 Tobacco use type Cigarette 07/19/24 09:22 e-Cigarette/Vaping Use Never Used 07/19/24 09:22 PHQ-9: PHQ-9 Score PHQ-9: Total score 6 07/19/24 09:35 Depression Screening Interpretation: Negative Thrive Assessment: Date of Thrive Assessment Date Thrive assessed 07/19/24 07/19/24 09:25 Currently or been in a relationship where the following occur: No concerns reported Results AMB Hemoglobin A1c AMB Hemoglobin A1c 6.7 % Last Edit by Talat Mosley CMA on 07/19/24 09: 54 Immunizations pneumoc 20-stan conj-dip cr(PF) 0.5 mL IM syringe Performing Provider: EDLORES Burr Performing Location: [facility] [place] [facility] Administered by: Talat Mosley CMA on 07/19/24 09:52 Dose Route Admin Location Dispensed Lot Number Expiration Date [facility] Grocery Department Manager 0.5 mL IM Right Deltoid 0.5 mL [id number] 07/10/25 0905-6375-69 WYETH/PFIZER VIS Given Date VIS Provided VIS Publication Date 07/19/24 Single Vaccine 21 Eligibility Eligibility Date Funding Source Not VFC Eligible 07/19/24 Private Boostrix Tdap 2.5 Lf unit-8 mcg-5 Lf/0.5 mL intramuscular syringe Performing Provider: DELORES Burr Performing Location: [facility] [place] [facility] Administered by: Talat Mosley CMA on 07/19/24 09:52 Dose Route Admin Location Dispensed Lot Number Expiration Date [facility] Grocery Department Manager 0.5 mL IM Left Deltoid 0.5 mL [id number] 07/12/26 32741-838-59 99.co VIS Given Date VIS Provided VIS Publication Date 07/19/24 Single Vaccine 21 Eligibility Eligibility Date Funding Source Not VFC Eligible 07/19/24 Private Coding Level of Care Code Est Pt Prev Care 40-64y(98360) Diagnoses Physical exam Z00.00 Thyroid cyst E04.1 Diabetes E11.9 Additional Codes TOMMY-7 Assessment Billing - TOMMY-7 Assessment Tool: TOMMY-7 Assessment 31430 ([id number]) PHQ-9 - 34676 - PHQ-9 Billing: Yes ([id number]) Assessment & Plan Assessment & Plan (1) Physical exam: Code(s): Z00.00 - Encounter for general adult medical examination without abnormal findings Category: Medical (2) Thyroid cyst: Code(s): E04.1 - Nontoxic single thyroid nodule Category: Medical (3) Diabetes: Code(s): E11.9 - Type 2 diabetes mellitus without complications Category: Medical Plan . Orders: Orders Comprehensive [place]. Panel Fast Today Z00.00 - Encounter for general adult medical examination without abnormal findings UA CC w/rflx Micro + Cult Today Z00.00 - Encounter for general adult medical examination without abnormal findings US thyroid Today E04.1 - Nontoxic single thyroid nodule AMB Hemoglobin A1c Today Z13.9 - Encounter for screening, unspecified TDaP Immunization Today Z23 - Encounter for immunization Influenza [id number] Immunization Today Z23 - Encounter for immunization Complete Blood Count Auto Diff Today Z00.00 - Encounter for general adult medical examination without abnormal findings TSH reflex Free T4 Today Z00.00 - Encounter for general adult medical examination without abnormal findings Lipid Panel Today Z00.00 - Encounter for general adult medical examination without abnormal findings Microalbumin, Random (w Creat) Today E11.9 - Type 2 diabetes mellitus without complications Medications: New tirzepatide (Mounjaro) for 4 weeks 2.5 mg (0.5 mL) subcut QWEEK 2 mL 0RF Boostrix Tdap (diphth,pertus(acell),tetanus) 0.5 mL IM ONCE 0.5 mL 0RF NS Z23 - Encounter for immunization Fluarix Triv [id number] (PF) (flu vacc [id number] 6mos up(PF)) 0.5 mL IM ONCE 0.5 mL 0RF NS Z23 - Encounter for immunization
[2024-07-19 09:22] VITALS: BP 130/74; PULSE 76; O2SAT 94; BMI 50.5
== END 2024-07-19 10:55 | disposition home or self-care (01) ==
PROVIDERS: PCP Nurse Practitioner Family; Visit Provider Nurse Practitioner Family
DX: Z00.00 Encounter for general adult medical examination without abnormal findings (principal); E04.1 Nontoxic single thyroid nodule; E11.9 Type 2 diabetes mellitus without complications; Z13.9 Encounter for screening, unspecified; Z23 Encounter for immunization

== ENCOUNTER → 2024-07-19 09:18 | Outpatient (BNVA) | payer OTHER, SELFPAY | PROVIDERS: PCP Nurse Practitioner Family; Visit Provider Nurse Practitioner Family | DX: Z00.00 Encounter for general adult medical examination without abnormal findings (principal); Z23 Encounter for immunization; E04.1 Nontoxic single thyroid nodule; E11.9 Type 2 diabetes mellitus without complications | CPT/HCPCS: 83036; 90471; 90472; 90677; 90715; 96127 ==

== ENCOUNTER 2024-09-07 08:33 | Outpatient (REF) | payer OTHER, SELFPAY ==
[2024-09-13 14:15] LABS: HPV Genotype 16 Negative (Negative); HPV Genotype 18 Negative (Negative); HPV High Risk Negative (Negative)
== END 2024-09-07 08:34 | disposition home or self-care (01) ==
LOC: HO.LNP 08:33
PROVIDERS: PCP Nurse Practitioner Family; Visit Provider Obstetrics & Gynecology
DX: Z01.419 Encounter for gynecological examination (general) (routine) without abnormal findings (principal)
CPT/HCPCS: 87626; 88175

== ENCOUNTER 2024-09-07 08:33 | Outpatient (AMB) | payer OTHER, SELFPAY ==
--- NOTE | 2024-09-07 08:35 | MHC.OFFVIS ---
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 No complaints. Last Pap/HPV was in 05/13 ascus HPV negative, colpo biopsy ECC showed ORIN 1 Last Mammogram was BI-RADS 1 in 07/14 Last Colonoscopy was done in 10/09, the recommendation was to repeat in 5 years [facility] Medical History ASCUS of cervix with negative high risk HPV COVID-19 vaccine administered Hypothyroid Surgical History Hx of cholecystectomy Family History Father Lung cancer Diabetes CHF (congestive heart failure) Mother Lung cancer Hypertension Brother Hypertension Diabetes Paternal Grandmother Breast cancer Family/Other Breast cancer Family/Other Colon cancer Maternal Grandmother Colon cancer Social History Household Members: Spouse and Children Housing: House Alcohol intake: current Alcohol intake frequency: holidays/special occasions only Patient Tobacco Use Status: Former Tobacco user Tobacco use type: Cigarette e-Cigarette/Vaping Use: Never Used Patient : No service: No 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: Female Cognitive needs: No Hearing needs: No Vision needs: Yes Female Reproductive History Menstrual Age of Menarche: 13 Total pregnancies: 4 Full term: 2 Ab spontaneous: 2 Date of last pap smear: 05/10/23 (ASCUS) History of abnormal pap smear: Yes Date of Mammogram: 07/09/23 Review of Systems Const All systems reviewed & are unremarkable except as noted in HPI and below Card Reports as per HPI Resp Reports as per HPI GI Reports as per HPI and Reports no additional complaints Reports as per HPI Physical Exam Vital Signs: Last Vital Signs BP 132/72 09/07/24 08:40 BMI result Body Mass Index 52.3 Const General: cooperative, healthy appearing and comfortable Chest Chest palpation & inspection: normal inspection of the chest and normal palpation of entire chest wall Breast/axilla inspection: normal inspection of the breasts and normal inspection of the axillae Breast/axilla palpation: normal palpation of the breasts, normal palpation of the axillae and no axillary lymphadenopathy Resp Effort & Inspection: normal respiratory effort Auscultation: clear to auscultation bilaterally Percussion: percussion normal Cardio Palpation: normal PMI Rate: regular rate Rhythm: regular rhythm Heart sounds: no murmurs and no rubs Peripheral pulses: Peripheral pulses 2+ throughout GI Inspection: Yes normal to inspection Palpation (GI): Soft to palpation, nontender, no guarding, not rigid and No hepatosplenomegaly present Percussion: Yes normal to percussion Auscultation: normal bowel sounds Rectal Exam - Female: deferred General: Yes bladder normal to palpation External Female Exam: No lesion Speculum Exam - Vagina: normal appearance of the vagina, normal palpation, normal vaginal discharge and not erythematous Speculum Exam - Cervix: normal appearance of the cervix and normal palpation Bimanual exam- vagina & uterus: normal bimanual exam, normal palpation, uterine size normal, bladder normal to palpation, consistency normal and normal palpation Bimanual Exam- Adnexa, other: normal adnexae, no masses and no tenderness Assessment & Plan Assessment & Plan (1) Well woman exam: Comment: ORIN 1 in 07/14 Code(s): Z01.419 - Encounter for gynecological examination (general) (routine) without abnormal findings Category: Medical Plan: Co testing done. Counseled the patient about the recommended dietary allowance of 1200 mg of Calcium & 600 IU of vitamin D. Mammogram ordered. The patient was instructed to perform monthly self-breast exams and schedule annual exam in a year. All questions answered and the patient verbalized understanding. Orders: Orders MM tomosynthesis screening BI Today Z12.31 - Encounter for screening mammogram for malignant neoplasm of breast Coding Level of Care Code Est Pt Prev Care 40-64y(71669) Diagnoses Well woman exam Z01.419
[2024-09-07 08:40] VITALS: BP 132/72; BMI 52.3
== END 2024-09-07 08:52 | disposition home or self-care (01) ==
LOC: HO.HWS 08:33
PROVIDERS: PCP Nurse Practitioner Family; Visit Provider Obstetrics & Gynecology
DX: Z01.419 Encounter for gynecological examination (general) (routine) without abnormal findings (principal)
CPT/HCPCS: 99396; 99459

== ENCOUNTER 2024-09-12 13:22 | Outpatient (REF) | payer OTHER, SELFPAY ==
--- NOTE | ~2024-09-12 | XR_ITS ---
EXAMINATION: XR CHEST CLINICAL INFORMATION: R05.9 - Cough, unspecified COMPARISON: None available. TECHNIQUE: 2 views of the chest were obtained. FINDINGS: No hyperinflation. No consolidation, pleural effusion or pneumothorax. Cardiomediastinal silhouette size is normal. Osseous structures are intact. Mild multilevel thoracic spondylosis. Mild S-shaped curvature of the mid thoracic spine. Patient's large body habitus/obesity. XR/XR chest 2V IMPRESSION: No acute airspace disease. Electronically signed by: Bradley Fatima MD 09/12/2024 02:18 PM EDT
[2024-09-12 16:16] LABS: MANUAL DIFF FLAG NO
[2024-09-12 16:37] LABS: Basophils Percent Auto 0.3 % (0-2); Eosinophils Absolute Auto 0.2 X10*3/uL (0.0-0.4); Eosinophils Percent Auto 1.9 % (0-4); Hematocrit 41.3 % (37.0-47.0); Hemoglobin 14.2 g/dl (12.0-16.0); Imm Gran Abs Auto 0.02 X10*3/uL (0.00-0.03); Imm Gran Pct Auto 0.2 % (0.0-0.4); Lymphocytes Absolute Auto 2.6 X10*3/uL (1.2-4.9); Lymphocytes Percent Auto 28.4 % (20-40); Mean Corpuscular HGB Conc 34.4 g/dl (31.0-35.0); Mean Corpuscular Hemoglobin 30.1 pg (27.0-33.0); Mean Corpuscular Volume 87.7 fL (80.0-98.0); Monocytes Absolute Auto 0.6 X10*3/uL (0.1-1.2); Monocytes Percent Auto 6.8 % (2-11); Neutrophils Absolute Auto 5.8 x10*3/uL (2.0-8.3); Neutrophils Percent Auto 62.4 % (45-73); Platelet Count 268 X10*3/uL (160-400); Red Blood Count 4.71 X10*6/uL (4.20-5.50); Red Cell Distribution Width 13.8 % (11.0-16.0); White Blood Count 9.3 X10*3/uL (4.8-10.8)
[2024-09-12 16:51] LABS: Appearance Urine Clear; Color Urine Yellow; Glucose Urine UA Negative (Negative); Leukocyte Esterase Urine Negative (Negative); Nitrite Urine Negative (Negative); PH 5.5 (5.0-9.0); Specific Gravity - Urine 1.025 (1.005-1.025); Urine Blood Negative (Negative); Urine Ketones Trace mg/dL (Negative); Urine Protein Negative (Neg-Trace)
[2024-09-12 17:07] LABS: Alanine Aminotransferase 24 U/L (0-31); Alkaline Phosphatase 83 U/L (39-117); Anion Gap 9 (12-20); Aspartate Amino Transferase 25 U/L (5-31); Bilirubin Total 0.5 mg/dL (0.0-1.0); Blood Urea Nitrogen 15 mg/dL (9-16); Calcium 9.2 mg/dL (8.4-10.2); Carbon Dioxide 23 mmol/L (22-29); Chloride 111 mmol/L (96-108); Cholesterol 137 mg/dL (<200); Estimated Glomerular Filt Rate > 60; Glucose Fasting 128 mg/dL (60-99); HDL Cholesterol 55 mg/dL (>40); LDL Cholesterol Calculated 68 mg/dL (<100); Potassium 4.3 mmol/L (3.3-5.1); Sodium 139 mmol/L (135-145); Total Protein 7.5 g/dL (6.5-8.0); Triglycerides 74 mg/dL (<150)
[2024-09-12 17:15] LABS: TSH reflex Free T4 1.91 uIU/mL (0.32-4.0)
[2024-09-12 17:43] LABS: Creatinine Urine 197.28 mg/dL; Microalbum/Creatinine Ratio Ur 6.5 ug/mg cr (<30)
[2024-09-12 18:02] LABS: Influenza A PCR NEGATIVE (Negative); Influenza B PCR NEGATIVE (Negative); Resp Syncy Virus RNA Qual PCR NEGATIVE (Negative); SARS COV2 PCR INHOUSE NEGATIVE (Negative)
== END 2024-09-12 13:23 | disposition home or self-care (01) ==
LOC: HO.HMGCLDS 13:22
PROVIDERS: PCP Nurse Practitioner Family; Referring Provider Nurse Practitioner Family; Visit Provider Physician Assistant
DX: Z00.00 Encounter for general adult medical examination without abnormal findings (principal); J22 Unspecified acute lower respiratory infection; R05.9 Cough, unspecified; E11.9 Type 2 diabetes mellitus without complications; R09.89 Other specified symptoms and signs involving the circulatory and respiratory systems
CPT/HCPCS: 0241U; 36415; 71046; 80053; 80061; 81003; 82043; 82570; 84443; 85025

== ENCOUNTER 2024-09-12 13:22 | Outpatient (AMB) | payer OTHER, SELFPAY ==
[2024-09-12 13:23] VITALS: BP 130/70; PULSE 80; TEMP 37; O2SAT 98; BMI 52.3
--- NOTE | 2024-09-12 13:23 | AM.OFFWIN_ITS ---
Intake Vital Signs 09/12/24 13:23 Height 5 ft 3 in Weight 295 lb BMI 52.3 BP 130/70 Blood Pressure Location Lt brachial Position Sitting Pulse 80 Pulse Source Pulse Oximeter Temp 98.6 F Temp Source Oral Pulse Oximetry (%) 98 Oxygen Delivery Method Room Air Intake Visit Reasons: EP Cold symptoms, sinus/chest congestion, ear Patient Tobacco Use Status: Former Tobacco user Allergies Penicillins Allergy (Unknown, Verified 09/12/24 13:36) HIVES sulfamethoxazole [From Bactrim] Allergy (Unknown, Verified 09/12/24 13:36) HIVES trimethoprim [From Bactrim] Allergy (Unknown, Verified 09/12/24 13:36) HIVES Do you need a note to return to daycare/school/sports/work: Yes HPI HPI Comments History of Present Illness Details History - The patient is a 58-year-old female pr esenting with symptoms suggestive of upper respiratory tract infection that started last week as a mild cold. She describes a persistent cough producing yellow sputum and associated worsening symptoms. She experienced negative COVID-19 testing at home initially. - The patient shows left-sided ear block age and pain, nasal discharge, watery left eye, along with an intermittent fever of 100.4?F, treated using Tylenol. - Sinus tenderness, particularly on the left side, accompanied by mild headache and increased cough. - No past official diagnosis of asthma, but owns a rescue inhaler for occasional breathing difficulties that increased recently. Using it only gives partial relief. - Previously experienced similar illness es, notably post-cruise 1-2 years ago. Physical Exam General: Cooperative, healthy appearing, comfortable and no acute distress Orientation/consciousness: Patient oriented x3 Limitations: No limitations Head: Normal to inspection Ears: Left ear blocked and red, right ear normal. Hearing grossly normal bilaterally Nose: Normal external nose present, Normal nares present and Yellow nasal discharge present Face and sinus: Normal facial exam and Sinuses tender Mouth: Normal oral and palatal mucosa present and moist mucous membranes Throat: Yes tonsils normal, Yes uvula midline. Posterior oropharynx erythema Eyes: Left eye watery, appearance otherwise normal, both eyes and all related structures Neck: Normal visual inspection Respiratory: Clear to auscultation bilaterally. Normal respiratory effort, able to speak in complete sentences, Actively coughing, no respiratory distress, not tachypneic, no tripod positioning and no use of accessory muscles Cardiovascular: Regular rate and rhythm. Normal S1 and S2 Skin: No rashes or lesions noted Neuro: Patient oriented x3 Extremities: Normal to inspection and Yes no clubbing, cyanosis or edema PFSH Medical History ASCUS of cervix with negative high risk HPV COVID-19 vaccine administered Hypothyroid Surgical History Hx of cholecystectomy Family History Father Lung cancer Diabetes CHF (congestive heart failure) Mother Lung cancer Hypertension Brother Hypertension Diabetes Paternal Grandmother Breast cancer Family/Other Breast cancer Family/Other Colon cancer Maternal Grandmother Colon cancer Social History Household Members: Spouse and Children Housing: House Alcohol intake: current Alcohol intake frequency: holidays/special occasions only Patient Tobacco Use Status: Former Tobacco user Tobacco use type: Cigarette e-Cigarette/Vaping Use: Never Used service: No 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: Female Cognitive needs: No Hearing needs: No Vision needs: Yes Female Reproductive History Menstrual Age of Menarche: 13 Review of Systems Const All systems reviewed & are unremarkable except as noted in HPI and below Physical Exam Vital Signs: Last Vital Signs Temp 98.6 F 09/12/24 13:23 Pulse 80 09/12/24 13:23 BP 130/70 09/12/24 13:23 Pulse Ox 98 09/12/24 13:23 Oxygen Delivery Method Room Air 09/12/24 13:23 BMI result Body Mass Index 52.3 Assessment & Plan Assessment & Plan (1) Lower respiratory infection (e.g., bronchitis, pneumonia, pneumonitis, pulmonitis): Code(s): J22 - Unspecified acute lower respiratory infection Plan: VSS, pt well appearing and PE unremarkable. Diagnostic tests for influenza, COVID-19, and RSV have been initiated with accompanying chest X-ray to evaluate any lower respiratory tract infection as pt having left sided pain with deep inspiration. Recommendations include nasal steroid Flonase for sinus management, cough suppressant benzonatate, and oral Solumedrol to lessen inflammation and provide respiratory relief, starting the next day to avoid sleep disturbances. Medication prescriptions sent for fulfillment with anticipation of results guiding further treatment involving potential antibiotics depending on confirma tion of bacterial infection. Patient was informed and verbally consented to the use of an ambient scribe for clinic note documentation during this visit Orders: Orders SARS-CoV2/FLU/RSV Today R09.89 - Other specified symptoms and signs involving the circulatory and respiratory systems XR chest 2V Today R05.9 - Cough, unspecified Medications: New benzonatate 200 mg PO BEDTIME PRN 10 caps 0RF cough methylprednisolone PO PER PKG DIR for 6 days 21 ea 0RF fluticasone propionate 50 mcg/actuation administer into each nostril 1 spray intranasal Q12H 16 grams 0RF Coding Level of Care Code Est Pt Level 4 (94970) Diagnoses Lower respiratory infection (e.g., bronchitis, pneumonia, pneumonitis, pulmonitis) J22
== END 2024-09-12 14:00 | disposition home or self-care (01) ==
PROVIDERS: PCP Nurse Practitioner Family; Visit Provider Physician Assistant
DX: J22 Unspecified acute lower respiratory infection (principal)

== ENCOUNTER → 2024-09-12 13:55 | Outpatient (BNV) | payer OTHER, SELFPAY | PROVIDERS: PCP Nurse Practitioner Family; Referring Provider Nurse Practitioner Family; Visit Provider Radiology Diagnostic Radiology | DX: R05.9 Cough, unspecified (principal) | CPT/HCPCS: 71046 ==

== ENCOUNTER 2024-10-17 11:32 | Outpatient (REF) | payer OTHER, SELFPAY | END 2024-10-17 11:33 | disposition home or self-care (01) | LOC: HO.LAB 11:32 | PROVIDERS: PCP Nurse Practitioner Family; Visit Provider Obstetrics & Gynecology | DX: R87.612 Low grade squamous intraepithelial lesion on cytologic smear of cervix (LGSIL) (principal) | CPT/HCPCS: 57454; 88305 ==

== ENCOUNTER 2024-10-17 11:32 | Outpatient (AMB) | payer OTHER, SELFPAY ==
[2024-10-17 11:43] VITALS: BMI 52.3
--- NOTE | 2024-10-17 11:43 | MHC.OFFVIS ---
Vital Signs 10/17/24 11:43 Height 5 ft 3 in Weight 295 lb BMI 52.3 Intake Visit Reasons: Colposcopy Training Manager Required: No Information Interpreted: non-clinical & clinical Acetone Recovery Worker: Acetone Recovery Worker Present (Molly CASTILLO) Accompanied by: Self / Same As Patient Allergies Penicillins Allergy (Unknown, Verified 10/17/24 11:44) HIVES sulfamethoxazole [From Bactrim] Allergy (Unknown, Verified 10/17/24 11:44) HIVES trimethoprim [From Bactrim] Allergy (Unknown, Verified 10/17/24 11:44) HIVES Post menopausal: Yes HPI Comments Details: Presenting for abnormal Pap smear showing LGSIL HPV negative PFSH Medical History ASCUS of cervix with negative high risk HPV COVID-19 vaccine administered Hypothyroid Surgical History Hx of cholecystectomy Family History Father Lung cancer Diabetes CHF (congestive heart failure) Mother Lung cancer Hypertension Brother Hypertension Diabetes Paternal Grandmother Breast cancer Family/Other Breast cancer Family/Other Colon cancer Maternal Grandmother Colon cancer Social History Household Members: Spouse and Children Housing: House Alcohol intake: current Alcohol intake frequency: holidays/special occasions only Patient Tobacco Use Status: Former Tobacco user Tobacco use type: Cigarette e-Cigarette/Vaping Use: Never Used service: No 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 We thoroughly discussed the procedure itself, including its details, alternatives, and all associated risks. This included but not limited to the following complications such as bleeding, infection, and injury to the vagina, bladder, and vessels, as well as the potential need for transfusion with all its associated risks. Subsequently, the patient sign the consent. Pap smear result: LSIL. Procedure: During the procedure, the following steps were performed: A speculum was inserted, and acetic acid was applied. Colposcopy was conducted, allowing visualization of the transformation zone. Acetowhite lesions were identified at the 1 o'clock position. Cervical biopsies were obtained from the 1 o'clock position, followed by an endocervical curettage (ECC). Vaginoscopy of the upper vagina revealed no evidence of aceto-white lesions. Hemostasis was achieved using Monsel solution, and the patient tolerated the procedure well. Post-Procedure Instructions: The patient was advised to promptly contact the office or the after hours answering service or go to the emergency room if experiencing a temperature exceeding 100.4?F, abdominal pain, nausea/vomiting, or bleeding. Additionally, the patient was instructed to abstain from vaginal intercourse and bathtub use. The patient confirmed understanding of these instructions. Discharge Instructions: The patient was instructed to schedule a follow-up appointment in 2 weeks for further evaluation and management. Please note that this note was generated using a voice recognition program, and errors may have occurred during paper baling machine operator. [id number] of cervix including upper vagina with biopsy and ECC Procedure code (CPT) selection complete Assessment & Plan Assessment & Plan (1) LGSIL on Pap smear of cervix: Code(s): R87.612 - Low grade squamous intraepithelial lesion on cytologic smear of cervix (LGSIL) Category: Medical Plan: Discussed with the patient the result of her abnormal pap, its significance, risk of progression, persistence, and regression. the false positive/negative rate of a Pap smear as a screening test in detecting cervical cancer and the indication for a diagnostic test -colposcopy, biopsy, endocervical curettage. The patient verbalized understanding and agreed with the plan, all questions answered. Colpo biopsy ECC done, see procedure note Orders: Orders AMB Colposcopy Today R87.612 - Low grade squamous intraepithelial lesion on cytologic smear of cervix (LGSIL) Coding Level of Care Code Procedure Only Diagnoses LGSIL on Pap smear of cervix R87.612 CPT Codes Colposcopy - CPT: 59178-[id number] of cervix including upper vagina with biopsy and ECC ([id number])
== END 2024-10-17 12:34 | disposition home or self-care (01) ==
LOC: HO.HWS 11:33
PROVIDERS: PCP Nurse Practitioner Family; Visit Provider Obstetrics & Gynecology
DX: R87.612 Low grade squamous intraepithelial lesion on cytologic smear of cervix (LGSIL) (principal)
CPT/HCPCS: 57454

== ENCOUNTER 2024-11-21 12:35 | Outpatient (AMB) | payer OTHER, SELFPAY ==
--- NOTE | 2024-11-21 12:37 | MHC.OFFVIS ---
Intake Visit Reasons: colpo results Allergies Penicillins Allergy (Unknown, Verified 10/17/24 11:44) HIVES sulfamethoxazole [From Bactrim] Allergy (Unknown, Verified 10/17/24 11:44) HIVES trimethoprim [From Bactrim] Allergy (Unknown, Verified 10/17/24 11:44) HIVES HPI Comments Details: The patient scheduled a telehealth visit post colpo for follow-up. The patient is doing well with no complaints. The pathology showed the following: A. Endocervix, curettage: - Low-grade squamous intraepithelial lesion (ORIN 1). - Endocervical mucosa with mild chronic inflammation. B. Cervix, 1 o'clock, biopsy: Squamous mucosa within normal limits; no endocervical epithelium present [facility] Medical History ASCUS of cervix with negative high risk HPV COVID-19 vaccine administered Hypothyroid Surgical History Hx of cholecystectomy Family History Father Lung cancer Diabetes CHF (congestive heart failure) Mother Lung cancer Hypertension Brother Hypertension Diabetes Paternal Grandmother Breast cancer Family/Other Breast cancer Family/Other Colon cancer Maternal Grandmother Colon cancer Social History Household Members: Spouse and Children Housing: House Alcohol intake: current Alcohol intake frequency: holidays/special occasions only Patient Tobacco Use Status: Former Tobacco user Tobacco use type: Cigarette e-Cigarette/Vaping Use: Never Used service: No 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: Female Cognitive needs: No Hearing needs: No Vision needs: Yes Female Reproductive History Menstrual Age of Menarche: 13 Review of Systems Const All systems reviewed & are unremarkable except as noted in HPI and below Reports as per HPI and Reports no additional complaints GI Reports no additional complaints Reports no additional complaints Telehealth Telehealth Telehealth Platform: Telephone Location of provider rendering services: practice address Location of patient: address on file Patient Identification confirmed using: Name, : Yes Telehealth method: video Patient verbally consented to treatment: Yes Patient verbally consented to billing insurance company: Yes Patient informed of any privacy concerns related to visit: Yes Minutes spent on Phone/Video with Pt.: 3 Assessment & Plan Assessment & Plan (1) Dysplasia of cervix, low grade (ORIN 1): Comment: Persistent since 05/13 Code(s): N87.0 - Mild cervical dysplasia Category: Medical Plan: Discussed with the patient the pathology results of the colposcopy biopsies & endocervical curettage ( mild dysplasia-ORIN 1) since 05/13. Discussed with the patient the sensitivity specificity, positive and negative predictive value in detecting cervical cancer in addition discussed the regression, persistence and progression rates. Since the ORIN 1 lesions are persistent since 05/13 options of treatment were discussed with the patient included the following continued observation versus excisional procedures. All the pros, cons, risks and benefits of each approach were discussed with the patient, the patient decided to proceed with repeat co testing in 05/10. Instructions given the patient to schedule a preop appointment. All questions answered the patient verbalized understanding. I spent a total of 20 minutes reviewing the chart, talking to the patient via video and documenting in the medical record. Coding Level of Care Code Tele Est Pt Level 3 (51830) Diagnoses Dysplasia of cervix, low grade (ORIN 1) N87.0
== END 2024-11-21 12:49 | disposition home or self-care (01) ==
LOC: HO.HWS 12:35
PROVIDERS: PCP Nurse Practitioner Family; Visit Provider Obstetrics & Gynecology
DX: N87.0 Mild cervical dysplasia (principal)
CPT/HCPCS: 99213

== ENCOUNTER → 2024-11-21 12:35 | Outpatient (BNVA) | payer OTHER, SELFPAY | PROVIDERS: PCP Nurse Practitioner Family; Visit Provider Obstetrics & Gynecology ==

== ENCOUNTER 2025-01-17 09:54 | Outpatient (AMB) | payer OTHER, SELFPAY ==
[2025-01-17 10:01] VITALS: BP 130/88; PULSE 71; RESP 16; TEMP 36.9; O2SAT 96; BMI 54.0
--- NOTE | 2025-01-17 10:01 | MHC.PC.OV ---
Vital Signs 01/17/25 10:01 Height 5 ft 3 in Weight 305 lb BMI 54.0 BP 130/88 Blood Pressure Location Lt brachial Position Sitting Respiration 16 Pulse 71 Pulse Source Pulse Oximeter Temp 98.5 F Temp Source Oral Pulse Oximetry (%) 96 Oxygen Delivery Method Room Air Intake Visit Reasons: 6m f/u Nurse Informaticist Required: No Accompanied by: Self / Same As Patient Allergies Penicillins Allergy (Unknown, Verified 01/17/25 10:29) HIVES sulfamethoxazole (From Bactrim) Allergy (Unknown, Verified 01/17/25 10:29) HIVES trimethoprim (From Bactrim) Allergy (Unknown, Verified 01/17/25 10:29) HIVES Medication List - Last Reconciled 01/17/25 by MYKEL Burr- albuterol sulfate 90 mcg/actuation 2 inhalations inhalation QID PRN NS atorvastatin 10 mg PO BEDTIME azithromycin For 250 mg dose pack: take 500 mg today (day 1), then 250 mg for 4 days (days 2-5) PO benzonatate 200 mg PO BEDTIME PRN blood sugar diagnostic (LoginRadiusTouch Verio test strips) Test blood sugar once a day calcium phos,dibas-vitamin D3 77-400 mg-unit 2,000 tabs PO DAILY fluticasone propionate 50 mcg/actuation 1 spray intranasal Q12H lancets (LoginRadiusTouch Delica Plus Lancet) Test blood sugar once a day levothyroxine 150 mcg PO DAILY metformin ER 500 mg PO DAILY methylprednisolone PO PER PKG DIR for 6 days OneTouch Verio Reflect Meter (blood-glucose meter) As directed to test blood sugar once a day NS tirzepatide (Mounjaro) 2.5 mg (0.5 mL) subcut QWEEK Tobacco use date assessed: 01/17/25 Dental Screening Dental Screen Date: 07/19/24 Did you have a dental visit in the last 12 months?: Yes Did you have a dental problem in the last 6 months where you did not have access to dental care?: No Was dental information given to patient?: Patient has dentist HPI 6m f/u HPI Details Chief Complaint The patient presents for diabetes management. History of Present Illness The patient is a 59-year-old female presenting with diabetes management. She denies experiencing polyuria, polydipsia, or neuropathy. She has recently started Mounjaro therapy two weeks ago and is tolerating it well. The patient is also managing morbid obesity. Her blood glucose levels range between 90 and 180 mg/dL, influenced by dietary intake. Her microalbumin levels are current, and she recently underwent an eye examination. Social History Health Maintenance - Eye exam: Recently completed Review of Systems - Endocrine: Denies polyuria, polydipsia, or neuropathy - Cardiovascular: Denies chest pain or dyspnea Physical Exam General: Cooperative, healthy appearing, comfortable, no acute distress and well developed. Patient is morbidly obese. Orientation: Patient oriented x3 Limitations: No limitations Head: Normal to inspection Ears: Hearing grossly normal bilaterally Nose: Normal external nose present Face and sinus: Normal facial exam Eyes: Appearance normal, both eyes and all related structures Neck: Normal visual inspection and Yes full ROM Respiratory: Normal respiratory effort and able to speak in complete sentences. Clear to auscultation bilaterally Cardiovascular: Regular rate and rhythm. Normal S1 and S2 GI: Normal to inspection. Soft to palpation and nontender Skin: No rashes or lesions noted Neuro: Patient oriented x3 Extremities: Normal to inspection. Feet intact with positive sensation using monofilament. Results - Labs: A1c to be obtained - Labs: Microalbumin is up to date Plan The patient will continue with Mounjaro therapy, with plans to increase the dosage as needed. A1c levels will be monitored with upcoming labs to assess glycemic control. The patient is advised to maintain her current dietary habits to manage blood glucose levels effectively. Discussion Notes I discussed with the patient the importance of monitoring her blood glucose levels and the role of Mounjaro in managing her diabetes. We also reviewed the need for regular A1c testing to evaluate her glycemic control. Patient Instructions - Continue taking Mounjaro as prescribed. - Monitor blood glucose levels regularly. - Follow up for lab tests including A1c. [facility] Medical History ASCUS of cervix with negative high risk HPV COVID-19 vaccine administered Hypothyroid Surgical History Hx of cholecystectomy Family History Father Lung cancer Diabetes CHF (congestive heart failure) Mother Lung cancer Hypertension Brother Hypertension Diabetes Paternal Grandmother Breast cancer Family/Other Breast cancer Family/Other Colon cancer Maternal Grandmother Colon cancer Social History Household Members: Spouse and Children Housing: House Alcohol intake: current Alcohol intake frequency: holidays/special occasions only Patient Tobacco Use Status: Former Tobacco user Tobacco use type: Cigarette e-Cigarette/Vaping Use: Never Used service: No 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: Female Cognitive needs: No Hearing needs: No Vision needs: Yes Female Reproductive History Menstrual Age of Menarche: 13 Questionnaire Thrive Questionnaire Date Thrive assessed: 07/19/24 I am a: Patient What is your living situation today?: I have a steady place to live Within the past 12 months, did the food you bought not last and you didn't have the money to get more?: Never true Within the past 12 months, did you worry whether your food would run out before you got money to buy more?: Never true Do you have trouble paying for medicines?: Yes Do you have trouble getting transportation to medical appointments?: No Do you have trouble paying your heating and electricity bill?: No Do you have trouble taking care of your child, family member or friend?: No Do you have trouble with day-to-day activities such as bathing, preparing meals, shopping, managing finances, etc.?: No Are you currently unemployed and looking for a job?: No Are you interested in more education?: No Please select the resources that you would like help with: None Currently or been in a relationship where the following occur: No concerns reported THRIVE Score: 0 TOMMY-7 AMB Questionnaire TOMMY-7 Date TOMMY - 7 assessed: 07/19/24 Source: Developed by Drs. Balwinder Simeon, Taina Duarte, Rod Tucker and colleagues, with an educational clinton from [employer]. Physical exam (Primary Care) Vital Signs: Last Vital Signs Temp 98.5 F 01/17/25 10:01 Pulse 71 01/17/25 10:01 Resp 16 01/17/25 10:01 BP 130/88 01/17/25 10:01 Pulse Ox 96 01/17/25 10:01 Oxygen Delivery Method Room Air 01/17/25 10:01 BMI result Body Mass Index 54.0 Tobacco/Smoking Status: Tobacco use Status Tobacco use date assessed 01/17/25 01/17/25 10:06 Patient Tobacco Use Status Former Tobacco user 01/17/25 10:06 Tobacco use type Cigarette 01/17/25 10:06 e-Cigarette/Vaping Use Never Used 01/17/25 10:06 Thrive Assessment: Date of Thrive Assessment Date Thrive assessed 07/19/24 01/17/25 10:06 Currently or been in a relationship where the following occur: No concerns reported Coding Level of Care Code Est Pt Level 3 (46863) Diagnoses Diabetes E11.9 Assessment & Plan Assessment & Plan (1) Diabetes: Code(s): E11.9 - Type 2 diabetes mellitus without complications Category: Medical Plan . Orders: Orders Complete Blood Count Auto Diff Today E11.9 - Type 2 diabetes mellitus without complications TSH reflex Free T4 Today E11.9 - Type 2 diabetes mellitus without complications Lipid Panel Today E11.9 - Type 2 diabetes mellitus without complications Hemoglobin A1c Today E11.9 - Type 2 diabetes mellitus without complications MM screening mammo BI Today Z12.31 - Encounter for screening mammogram for malignant neoplasm of breast Comprehensive [place]. Panel Fast Today E11.9 - Type 2 diabetes mellitus without complications UA CC w/rflx Micro + Cult Today E11.9 - Type 2 diabetes mellitus without complications
== END 2025-01-17 11:01 | disposition home or self-care (01) ==
LOC: HO.HMCC 09:54
PROVIDERS: PCP Nurse Practitioner Family; Visit Provider Nurse Practitioner Family
DX: E11.9 Type 2 diabetes mellitus without complications (principal)

== ENCOUNTER 2025-01-22 12:37 | Outpatient (REF) | payer OTHER, SELFPAY ==
[2025-01-22 16:17] LABS: MANUAL DIFF FLAG NO
[2025-01-22 16:23] LABS: Hematocrit 43.4 % (37.0-47.0); Hemoglobin 14.3 g/dl (12.0-16.0); Imm Gran Abs Auto 0.01 X10*3/uL (0.00-0.03); Imm Gran Pct Auto 0.1 % (0.0-0.4); Lymphocytes Absolute Auto 2.7 X10*3/uL (1.2-4.9); Mean Corpuscular HGB Conc 32.9 g/dl (31.0-35.0); Mean Corpuscular Hemoglobin 29.5 pg (27.0-33.0); Mean Corpuscular Volume 89.5 fL (80.0-98.0); NRBC Abs Auto 0.000 X10*3/uL (0.0-0.012); NRBC Pct Auto 0.0 /100WBC (0.0-0.2); Platelet Count 261 X10*3/uL (160-400); Red Blood Count 4.85 X10*6/uL (4.20-5.50); White Blood Count 7.0 X10*3/uL (4.8-10.8)
[2025-01-22 16:31] LABS: Hemoglobin A1C 186.9276 umol/L; Total Hemoglobin (HGBA1C) 3744.7793 umol/L
[2025-01-22 16:48] LABS: Alanine Aminotransferase 37 U/L (0-31); Albumin Level 4.2 g/dL (3.5-5.0); Alkaline Phosphatase 69 U/L (39-117); Anion Gap 13 (12-20); Aspartate Amino Transferase 36 U/L (5-31); Blood Urea Nitrogen 19 mg/dL (9-16); Calcium 8.9 mg/dL (8.4-10.2); Carbon Dioxide 23 mmol/L (22-29); Chloride 110 mmol/L (96-108); Cholesterol 134 mg/dL (<200); Estimated Glomerular Filt Rate > 60; HDL Cholesterol 49 mg/dL (>40); Potassium 4.1 mmol/L (3.3-5.1); Sodium 142 mmol/L (135-145); Total Protein 7.4 g/dL (6.5-8.0); Triglycerides 85 mg/dL (<150)
== END 2025-01-22 12:38 | disposition home or self-care (01) ==
LOC: HO.HMGCLDS 12:37
PROVIDERS: PCP Nurse Practitioner Family; Visit Provider Nurse Practitioner Family
DX: E11.9 Type 2 diabetes mellitus without complications (principal)
CPT/HCPCS: 36415; 80053; 80061; 83036; 84443; 85025

== ENCOUNTER → 2025-02-08 10:30 | Outpatient (BNV) | payer OTHER, SELFPAY | PROVIDERS: PCP Nurse Practitioner Family; Visit Provider Internal Medicine | DX: Z12.31 Encounter for screening mammogram for malignant neoplasm of breast (principal) | CPT/HCPCS: 77063; 77067 ==

== ENCOUNTER 2025-02-08 10:33 | Outpatient (REF) | payer OTHER, SELFPAY | END 2025-02-08 10:34 | disposition home or self-care (01) | LOC: HO.MAMMO 10:33 | PROVIDERS: PCP Nurse Practitioner Family; Visit Provider Nurse Practitioner Family | DX: Z12.31 Encounter for screening mammogram for malignant neoplasm of breast (principal) | CPT/HCPCS: 77063; 77067 ==

== ENCOUNTER 2025-03-01 10:16 | Outpatient (REF) | payer OTHER, SELFPAY ==
--- NOTE | ~2025-03-01 | US_ITS ---
EXAMINATION: US THYROID HISTORY: E04.1 - Nontoxic single thyroid nodule TECHNIQUE: Real-time grayscale ultrasound imaging was performed and images were reviewed. COMPARISON: Comparison is made with the prior examination dated 07/29/2021. FINDINGS: SIZE: The right thyroid lobe measures 4.4 x 1.5 x 2.0 cm. The left thyroid lobe measures 4.7 x 1.6 x 1.8 cm. The isthmus measures 4 mm. FLOW: Flow to the gland is normal. ECHOGENICITY: The echotexture of the gland is heterogeneous. NODULES: There is a 1.8 x 0.6 x 0.9 cm cystic nodule at the upper pole of the left thyroid lobe and a 0.7 x 0.4 x 0.5 cm cystic nodule at the upper pole of the right thyroid lobe. No solid nodules are identified. US/US thyroid IMPRESSION: Heterogeneous thyroid gland with cystic nodules at the upper poles of both thyroid lobes. ACR TI-RADS Guidelines TR1 (0 points): Benign. No follow-up or biopsy required TR2 (2 points): Not Suspicious. No biopsy or follow up indicated TR3 (3 points): Mildly Suspicious. FNA if >= 2.5 cm, Follow if >= 1.5 cm TR4 (4-6 points): Moderately Suspicious. FNA if >= 1.5 cm, Follow if >= 1.0 cm TR5 (>=7 points): Highly Suspicious. FNA if >= 1.0 cm, Follow if >= 0.5 cm Electronically signed by: Balwinder Chávez MD 03/01/2025 12:34 PM EDT
== END 2025-03-01 10:17 | disposition home or self-care (01) ==
LOC: HO.HMGCX 10:16
PROVIDERS: PCP Nurse Practitioner Family; Visit Provider Nurse Practitioner Family
DX: E04.1 Nontoxic single thyroid nodule (principal)
CPT/HCPCS: 76536

== ENCOUNTER → 2025-03-01 10:18 | Outpatient (BNV) | payer OTHER, SELFPAY | PROVIDERS: PCP Nurse Practitioner Family; Visit Provider Radiology Diagnostic Radiology | DX: E04.2 Nontoxic multinodular goiter (principal) | CPT/HCPCS: 76536 ==

== ENCOUNTER 2025-05-09 09:00 | Outpatient (AMB) | payer OTHER, SELFPAY ==
--- NOTE | 2025-05-09 09:16 | MHC.OFFVIS ---
Vital Signs 05/09/25 09:18 Height 5 ft 3 in Weight 298 lb BMI 52.8 Intake Visit Reasons: cotest Solid Waste Facility Operator Required: No Information Interpreted: non-clinical & clinical Senior Ui Software Engineer: Senior Ui Software Engineer Present (Molly Jimenez ADRIENNEBela) Accompanied by: Self / Same As Patient Allergies Penicillins Allergy (Unknown, Verified 05/09/25 09:21) HIVES sulfamethoxazole (From Bactrim) Allergy (Unknown, Verified 05/09/25 09:21) HIVES trimethoprim (From Bactrim) Allergy (Unknown, Verified 05/09/25 09:21) HIVES Post menopausal: Yes HPI Comments Details: Presenting for annual exam. No complaints. Last Pap/HPV was in 09/12 LGSIL HPV negative, colpo biopsy ECC ORIN 1 Last Mammogram was BI-RADS 1 in 02/12 Last Colonoscopy was done in 10/09, the recommendation was to repeat 5 years [facility] Medical History ASCUS of cervix with negative high risk HPV COVID-19 vaccine administered Hypothyroid Surgical History Hx of cholecystectomy Family History Father Lung cancer Diabetes CHF (congestive heart failure) Mother Lung cancer Hypertension Brother Hypertension Diabetes Paternal Grandmother Breast cancer Family/Other Breast cancer Family/Other Colon cancer Maternal Grandmother Colon cancer Social History Household Members: Spouse and Children Housing: House Alcohol intake: current Alcohol intake frequency: holidays/special occasions only Patient Tobacco Use Status: Former Tobacco user Tobacco use type: Cigarette e-Cigarette/Vaping Use: Never Used service: No 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: Female Cognitive needs: No Hearing needs: No Vision needs: Yes Female Reproductive History Menstrual Age of Menarche: 13 Date of last pap smear: 09/07/24 Review of Systems Const All systems reviewed & are unremarkable except as noted in HPI and below Card Reports as per HPI Resp Reports as per HPI GI Reports as per HPI and Reports no additional complaints Reports as per HPI Physical Exam Vital Signs: BMI result Body Mass Index 52.8 Const General: cooperative, healthy appearing and comfortable Chest Chest palpation & inspection: normal inspection of the chest and normal palpation of entire chest wall Breast/axilla inspection: normal inspection of the breasts and normal inspection of the axillae Breast/axilla palpation: normal palpation of the breasts, normal palpation of the axillae and no axillary lymphadenopathy Resp Effort & Inspection: normal respiratory effort Auscultation: clear to auscultation bilaterally Percussion: percussion normal Cardio Palpation: normal PMI Rate: regular rate Rhythm: regular rhythm Heart sounds: no murmurs and no rubs Peripheral pulses: Peripheral pulses 2+ throughout GI Inspection: Yes normal to inspection Palpation (GI): Soft to palpation, nontender, no guarding, not rigid and No hepatosplenomegaly present Percussion: Yes normal to percussion Auscultation: normal bowel sounds Rectal Exam - Female: deferred General: Yes bladder normal to palpation External Female Exam: No lesion Speculum Exam - Vagina: normal appearance of the vagina, normal palpation, normal vaginal discharge and not erythematous Speculum Exam - Cervix: normal appearance of the cervix and normal palpation Bimanual exam- vagina & uterus: normal bimanual exam, normal palpation, uterine size normal, bladder normal to palpation, consistency normal and normal palpation Bimanual Exam- Adnexa, other: normal adnexae, no masses and no tenderness Assessment & Plan Assessment & Plan (1) Well woman exam: Comment: ORIN 1 in 07/14 and 10/13 Code(s): Z01.419 - Encounter for gynecological examination (general) (routine) without abnormal findings Category: Medical Plan: Cotesting done. Instructions given the patient to schedule next screening Mammogram in 02/12. Counseled the patient about the recommended dietary allowance of 1000 mg of Calcium & 600 IU of vitamin D. Referral to GI for screening colonoscopy placed The patient was instructed to perform monthly self-breast exams and to schedule an annual exam in a year; All questions answered and the patient verbalized understanding. Instructed the patient to schedule annual exam in a year Orders: Referrals Gastroenterology Referral Z12.11 - Encounter for screening for malignant neoplasm of colon Gastroenterology Referral Z12.11 - Encounter for screening for malignant neoplasm of colon Coding Level of Care Code Est Pt Prev Care 40-64y(45408) Diagnoses Well woman exam Z01.419
[2025-05-09 09:18] VITALS: BMI 52.8
== END 2025-05-09 09:55 | disposition home or self-care (01) ==
LOC: HO.HWS 09:01
PROVIDERS: PCP Nurse Practitioner Family; Visit Provider Obstetrics & Gynecology
DX: Z01.419 Encounter for gynecological examination (general) (routine) without abnormal findings (principal)
CPT/HCPCS: 99396; 99459

== ENCOUNTER 2025-05-09 09:00 | Outpatient (REF) | payer OTHER, SELFPAY ==
--- OUTSIDE RECORDS SUMMARY | 2025-05-09 23:15 | XMS_ITS | Encounter Summary ---
Author Organization [facility] Address [address] [place] [address] Care Team Providers Care Activity Therapy Teacher Name Role Phone Diane Ray DO Primary Care Pro vider Jl [facility], Pcp Primary Care Provider UnavailLindsey Rainey Primary Care Provider Unavailab danyel [facility], Pcp Unavailable Unavailable Encounter Details Date Type Department Care Team Description 03/07/2015 Orders Only Adult Medicine [address] [address] Diane Ray DO Dysuria (Primary Dx) Social History Tobacco Use Types Packs/Day Years Used Date Smoking Tobacco: Former Alcohol Use Standard Drinks/Week Comments Not Asked 0 (1 standard drink = 0.6 oz pur e alcohol) Sex Assigned at Date Recorded Not on file documented as of this encounter Plan of Treatment Not on file documented as of this encounter Visit Diagnoses Diagnosis Dysuria- Primary documented in this encounter Care Teams Activity Therapy Teacher Relationship Specialty Start Date End Date Diane Ray DO PCP - General Internal Medicine 10/16/13 08/04/15 [facility], Pcp PCP - General Internal Medicine 08/05/15 04/08/17 Lindsey Jean PCP - General 04/09/17 [facility], Pcp Internal Medicine 04/09/17 documented as of this encounter
--- OUTSIDE RECORDS SUMMARY | 2025-05-09 23:15 | XMS_ITS | Encounter Summary ---
Author Organization [facility] Address [address] [place] [address] Care Team Providers Care Solution Maker Name Role Phone Diane Ray DO Primary Care Pro vider Jl [facility], Pcp Primary Care Provider UnavailLindsey Rainey Primary Care Provider Unavailab danyel [facility], Pcp Unavailable Unavailable Encounter Details Date Type Department Care Team Description 06/27/2014 Orders Only Adult Medicine [address] [address] Diane Ray DO Hypothyroid (Primary Dx) Social History Tobacco Use Types Packs/Day Years Used Date Smoking Tobacco: Former Alcohol Use Standard Drinks/Week Comments Not Asked 0 (1 standard drink = 0.6 oz pur e alcohol) Sex Assigned at Date Recorded Not on file documented as of this encounter Plan of Treatment Not on file documented as of this encounter Visit Diagnoses Diagnosis Hypothyroid- Primary Unspecified hypothyroidism documented in this encounter Care Teams Solution Maker Relationship Specialty Start Date End Date Diane Ray DO PCP - General Internal Medicine 10/16/13 08/04/15 [facility], Pcp PCP - General Internal Medicine 08/05/15 04/08/17 Lindsey Jean PCP - General 04/09/17 [facility], Pcp Internal Medicine 04/09/17 documented as of this encounter
--- OUTSIDE RECORDS SUMMARY | 2025-05-09 23:15 | XMS_ITS | Encounter Summary ---
Author Organization [facility] Address [address] [place] [address] Care Team Providers Care Automotive Glass Installer Name Role Phone Diane Ray DO Primary Care Pro vider [facility], Pcp Primary Care Provider UnavailLindsey Rainey Primary Care Provider Unavailab [facility], Pcp Unavailable Unavailable Reason for Visit * Reason Onset Date Comments Provider Call Back 10/16/2013 twitching in face Encounter Details Date Type Department Care Team Description 10/16/2013 Telephone Adult Medicine [address] [address] Diane Ray DO Provider Call Back (twitching in face ) Social History Tobacco Use Types Packs/Day Years Used Date Smoking Tobacco: Never Assessed Sex Assigned at Date Recorded Not on file documented as of this encounter Miscellaneous Notes * Telephone Encounter - Karla Vergara R.N. - 10/16/2013 12:16 PM EDT Number in demographics is not a working number, if pt calls back please get a number where pt can be reached * Telephone Encounter - Mary Garcia - 10/16/2013 9:20 AM EDT Symptoms patient is presenting: twitching in right side of face. Went to urgent care and was told she had celluitis and given a antibiotic. Patient knows this is not what it is. Patient does have a 9;15 with Bree tomorrow How long has patient had these symptoms?: over the weekend PCP: Diane Miller Payor: SOPHIE/PPO POS Plan: PPO $35 [place] [id number] Product Type: PPO [id number] documented in this encounter Plan of Treatment Not on file documented as of this encounter Visit Diagnoses Not on filedocumented in this encounter Care Teams Automotive Glass Installer Relationship Specialty Start Date End Date Diane Ray DO PCP - General Internal Medicine 10/16/13 08/04/15 [facility] Pcp PCP - General Internal Medicine 08/05/15 04/08/17 Lindsey Jean PCP - General 04/09/17 [facility], Pcp Internal Medicine 04/09/17 documented as of this encounter
--- OUTSIDE RECORDS SUMMARY | 2025-05-09 23:15 | XMS_ITS | Clinical Summary ---
Author Organization [facility] Address [address] [place] [address] Care Team Providers Care Senior Project Architect Name Role Phone Lindsey Jean Primary Care Provider Unavailab [facility], Pcp Unavailable Unavailable Allergies Active Allergy Reactions Severity Noted Date Comments Penicillins Hives/Urticaria 10/17/2013 Sulfa Drugs OTHER 10/17/2013 [place] flush and skin got very red Medications Medication Sig Dispensed Refills Start Date End Date Status levothyroxine (SYNTHROID, LEVOTHROID) 88 MCG tablet Take 1 Tab by mouth daily. 30 Tab 5 02/07/2015 Active ALBUTEROL SULFATE (PROAIR HFA) 108 (90 BASE) MCG/ACT Aero Soln Take 2 Puffs by mouth every 6 hours as needed for Cough or Wheezing. 1 Inhaler 1 07/29/2015 Active Active Problems Problem Noted Date Family history of lung cancer 06/21/2014 Family history of colon cancer 5 Family history of breast cancer 06/21/19 15 Snoring 06/21/2014 Prediabetes 10/23/2013 Hypothyroid 10/23/2013 Jay's palsy 10/17/2013 Obesity 10/17/2013 Resolved Problems Problem Noted Date Resolved Date Morbid obesity 10/23/2013 10/23/2013 Immunizations Name Administration Dates Next Due Influenza Flu (PT Reported) 03/21/2014 Tdap 06/19/2014 Family History Medical History Relation Name Comments CA Breast Aunt mat CA Breast Paternal Grandmother Relation Name Status Comments Aunt mat Alive breast cancer Father CVA, [place], DM, PV D, lung ca Maternal Grandmother Colon C A Mother (Age 62) lung ca, h tn, Paternal Grandmother Breast Ca Uncle colon cancer Social History Tobacco Use Types Packs/Day Years Used Date Smoking Tobacco: Former Alcohol Use Standard Drinks/Week Comments Not Asked 0 (1 standard drink = 0.6 oz pur e alcohol) Sex Assigned at Date Recorded Not on file Last Filed Vital Signs Vital Sign Reading Time Taken Comments Blood Pressure 116/70 02/07/2015 10:08 AM EDT Pulse 70 02/07/2015 10:08 AM EDT Temperature 36.8 C (98.2 F) 06/19/2014 9:04 AM EST Respiratory Rate 16 02/07/2015 10:0 8 AM EDT Oxygen Saturation - - Inhaled Oxygen Concentration - - Weight 122.7 kg (270 lb 9.6 oz) 015 10:08 AM EDT Height 160 cm (5' 3 ) 02/07/2015 10:08 AM EDT Body Mass Index 47.93 02/07/2015 10:08 AM EDT Plan of Treatment Health Maintenance Due Date Last Done Comments Covid-19 Vaccine (#1) 04/19/1966 TOBACCO CHECK/ADVISE 1984 CERVICAL CANCER SCREENING 10/16/20132010 (External Completion) MAMMOGRAM 10/27/2015 10/26/2014, 10/24/2013 COLON CANCER SCREENING 2016 SHINGLES VACCINE (1 of 2) 2016 BASELINE HEALTH EXAM 40-64 02/07/201702/07, 06/19/2014, 06/19/2014 CHOLESTEROL SCREENING 10/17/2018 10/17/2013 DTAP/TDAP/TD (2 - Td or Tdap) 06/19/2024 06/19/2014 BMI CHECK/ADVISE 06/21/2024 02/07/2015, , 10/23/2013, Additional history exists INFLUENZA (#1) 2025 03/21/2014 PNEUMOCOCCAL VACCINE FOR HIG H RISK PATIENTS (#1) 10/19/2031 Care Teams Senior Project Architect Relationship Specialty Start Date End Date Lindsey Jean PCP - General 04/09/17 [facility], Pcp Internal Medicine 04/09/17
--- OUTSIDE RECORDS SUMMARY | 2025-05-09 23:15 | XMS_ITS | Encounter Summary ---
Author Organization [facility] Address [address] [place] [address] Care Team Providers Care Commercial Loan Reviewer Name Role Phone Diane Ray DO Primary Care Pro vider Jl [facility], Pcp Primary Care Provider UnavailLindsey Rainey Primary Care Provider Unavailab le [facility], Pcp Unavailable Unavailable Encounter Details Date Type Department Care Team Description 10/19/2013 Release of Information Medical Records [address] [place] [id number] Abstract, Provider Social History Tobacco Use Types Packs/Day Years Used Date Smoking Tobacco: Former Alcohol Use Standard Drinks/Week Comments Not Asked 0 (1 standard drink = 0.6 oz pur e alcohol) Sex Assigned at Date Recorded Not on file documented as of this encounter Plan of Treatment Not on file documented as of this encounter Visit Diagnoses Not on filedocumented in this encounter Care Teams Commercial Loan Reviewer Relationship Specialty Start Date End Date Diane Ray DO PCP - General Internal Medicine 10/16/13 08/04/15 [facility], Pcp PCP - General Internal Medicine 08/05/15 04/08/17 Lindsey Jean PCP - General 04/09/17 [facility], Pcp Internal Medicine 04/09/17 documented as of this encounter
== END 2025-05-09 09:01 | disposition home or self-care (01) ==
LOC: HO.LNP 09:00
PROVIDERS: PCP Nurse Practitioner Family; Visit Provider Obstetrics & Gynecology
DX: Z01.419 Encounter for gynecological examination (general) (routine) without abnormal findings (principal); R87.610 Atypical squamous cells of undetermined significance on cytologic smear of cervix (ASC-US); R87.612 Low grade squamous intraepithelial lesion on cytologic smear of cervix (LGSIL); Z12.11 Encounter for screening for malignant neoplasm of colon
CPT/HCPCS: 87626; 88175